=== PATIENT | female | born 1970 | race African-American/Black ===

== ENCOUNTER 2017-12-31 21:28 | Observation (INO) | payer OTHER ==
[2017-12-31] MEDS ORDERED: ASPIRIN 81 MG CHEWABLE TABLET ONE (22:00)
[2017-12-31] MEDS ORDERED: NITROGLYCERIN 0.4 MG/TAB SL ONE (22:00)
[2017-12-31 22:02] LABS: Absolute Lymphocytes (CBC) 2.1 K/uL (0.7-4.9); Absolute Monocytes 0.6 K/uL (0.1-1.3); Absolute Neutrophil 3.5 K/uL (1.8-8.0); Basophils % 0.5 % (0-1.3); Eosinophils % 1.7 % (0-4.4); Hematocrit 38.9 % (36.0-45.0); Lymphocytes % 33.4 % (15.3-44.8); MCH 30.2 pg (27.0-35.0); MCV 88.4 fL (80-100); MPV 7.8 fL (7.6-11.3); Monocytes % 9.4 % (3.3-12.3)
[2017-12-31 22:09] LABS: Protime INR 0.98
[2017-12-31 22:22] LABS: ALT/SGPT 24 U/L (12-78); AST/SGOT 18 U/L (15-37); Albumin 3.9 g/dL (3.4-5.0); Alkaline Phosphatase 82 U/L (45-117); BUN Blood Urea Nitrogen 12 mg/dL (7-18); Bicarbonate 33 mmol/L (21-32); Bilirubin Direct < 0.1 mg/dL (0-0.2); Bilirubin Total 0.3 mg/dL (0.2-1.0); Glucose Level 85 mg/dL (74-106); Magnesium 1.9 mg/dL (1.8-2.4); NT PRO-BNP 59 pg/mL (<125); Potassium 3.8 mmol/L (3.5-5.1); Sodium Level 138 mmol/L (136-145)
--- NOTE | 2017-12-31 22:49 | RAD REPORT ---
EXAM DESCRIPTION: RAD - Chest Single View - 12/31/2017 10:32 pm CLINICAL HISTORY: CHEST PAIN Chest pain. COMPARISON: Chest Single View dated 05/20/2017; CHEST SINGLE VIEW dated 01/25/2008 FINDINGS: Portable technique limits examination quality. The lungs are grossly clear. The heart is upper limit of normal in size. No displaced fractures. IMPRESSION: No acute intrathoracic process suspected.
--- NOTE | 2017-12-31 23:55 | ER ---
Nurse's Notes [facility] Name: Etta Boyd Age: 47 yrs Sex: Female : 1970 Arrival Date: 12/31/2017 Time: 21:29 Bed 27 Private MD: Yamel Henson K Diagnosis: Chest pain, unspecified;Paresthesia of skin Presentation: 12/31 21:32 Method Of Arrival: Ambulatory fc 21:32 Acuity: FALGUNI 3 21:32 Presenting complaint: Patient states: that she has been having chest pain on and off x fc 2 days. Then tonight at 1830 she started to have tingling and numbness to left arm/hand and face. Transition of care: patient was not received from another setting of care. Onset of symptoms was December 29, 2017. Risk Assessment: Do you want to hurt yourself or someone else? Patient reports no desire to harm self or others. Initial Sepsis Screen: Does the patient meet any 2 criteria? RR > 20 per min. Yes Does the patient have a suspected source of infection? No. Patient's initial sepsis screen is negative. Care prior to arrival: None. Historical: - Allergies: 21:54 No Known Allergies; fc - Home Meds: 21:54 amlodipine 5 mg tab 1 tab once daily [Active]; tramadol 50 mg Oral tab 1 tab as needed fc [Active]; metoprolol tartrate 100 mg oral tab 1 tab once daily [Active]; lisinopril 40 mg oral tab 1 tab once daily [Active]; atorvastatin 20 mg Oral tab 1 tab once daily [Active]; aspirin 81 mg Oral chew 1 tab once daily [Active]; Hydrochlorothiazide Oral once daily [Active]; - PMHx: 21:54 Hyperlipidemia; Hypertension; fc - PSHx: 21:54 Hysterectomy; Tubal ligation; fc - Immunization history:: Last tetanus immunization: up to date. - Social history:: Smoking status: Patient/guardian denies using tobacco. - Ebola Screening: : Patient negative for fever greater than or equal to 101.5 degrees Fahrenheit, and additional compatible Ebola Virus Disease symptoms Patient denies exposure to infectious person Patient denies travel to an Ebola-affected area in the 21 days before illness onset. Screenin:32 Abuse screen: Denies threats or abuse. Nutritional screening: No deficits noted. fc Tuberculosis screening: No symptoms or risk factors identified. Fall Risk None identified. 22:15 Abuse screen: Denies threats or abuse. Denies injuries from another. Nutritional mg2 screening: No deficits noted. Fall Risk None identified. Assessment: 22:00 General: Appears uncomfortable, Behavior is calm, cooperative. Pain: Complains of pain mg2 in left chest Pain radiates to left arm Pain currently is 7 out of 10 on a pain scale. Quality of pain is described as aching, Pain began yesterday Is intermittent, Alleviated by rest, Noted to be grimacing. Neuro: Level of Consciousness is awake, alert, obeys commands, Oriented to person, place, time. Cardiovascular: Capillary refill < 3 seconds Patient's skin is warm and dry. Rhythm is sinus rhythm. Respiratory: Airway is patent Respiratory effort is even, unlabored, Respiratory pattern is regular, symmetrical. GI: No signs and/or symptoms were reported involving the gastrointestinal system. : No signs and/or symptoms were reported regarding the genitourinary system. EENT: No signs and/or symptoms were reported regarding the EENT system. Derm: Skin is intact, Skin is pink, warm \T\ dry. normal. Musculoskeletal: No signs and/or symptoms reported regarding the musculoskeletal system. 22:54 Reassessment: patient is back from CT scan. mg2 01/01 00:45 Reassessment: Patient appears in no apparent distress at this time. Patient and/or mg2 family updated on plan of care and expected duration. Pain level reassessed. Patient is alert, oriented x 3, equal unlabored respirations, skin warm/dry/pink. receiving nurse will call back to take the report. Vital Signs: 12/31 21:32 BP 156 / 98; Pulse 85; Resp 28; Temp 98.4(O); Pulse Ox 99% on R/A; Weight 127.91 kg fc (R); Height 5 ft. 4 in. (162.56 cm) (R); Pain 7/10; 23:30 BP 127 / 68; Pulse 89; Resp 18; Temp 98.4; Pulse Ox 100% on R/A; Pain 5/10; mg2 01/01 00:50 BP 146 / 89; Pulse 89; Resp 18; Pulse Ox 100% on R/A; Pain 10; mg2 12/31 21:32 Body Mass Index 48.40 (127.91 kg, 162.56 cm) fc NIH Stroke Scale Scores: 12/31 22:00 NIHSS Score: 0 jr8 ED Course: 21:29 Patient arrived in ED. al2 21:30 Yamel Henson MD is Private Physician. al2 21:32 No provider procedures requiring assistance completed. Patient maintains SpO2 fc saturation greater than 95% on room air. 21:32 Arm band placed on Patient placed in an exam room, on a stretcher. fc 21:32 Patient has correct armband on for positive identification. dye colorist dyer on. Pulse fc ox on. NIBP on. 21:38 EKG done, by ED staff, reviewed by Cruz DAVIS. fc 21:43 Inserted saline lock: 20 gauge in right antecubital area, using aseptic technique. ak1 Blood collected. 21:47 Cruz Sinclair PA is PHCP. jr8 21:47 Billy Tamayo MD is Attending Physician. jr8 21:48 Triage completed. fc 21:52 Johnson Grider RN is Primary Nurse. mg2 22:29 X-ray completed. Portable x-ray completed in exam room. Patient tolerated procedure mh1 well. 22:30 XRAY Chest (1 view) In Process Unspecified. EDMS 22:54 CT Head Brain wo Cont In Process Unspecified. EDMS 23:55 Leslee Harris MD is Hospitalizing Provider. jr8 01/01 00:51 Patient admitted, IV remains in place. mg2 Administered Medications: 12/31 21:58 Drug: Nitroglycerin 0.4 mg Route: Sublingual; mg2 23:38 Follow up: Response: No adverse reaction mg2 21:59 Drug: Aspirin Chewable Tablet 324 mg Route: PO; mg2 23:38 Follow up: Response: No adverse reaction mg2 01/01 00:05 Drug: fentaNYL (PF) 50 mcg Route: IVP; Site: right antecubital; mg2 00:52 Follow up: Response: No adverse reaction; Pain is decreased mg2 Point of Care Testing: Blood Glucose: 12/31 21:37 Blood Glucose: 63 mg/dL; fc Ranges: Outcome: 23:55 Decision to Hospitalize by Provider. jr8 01/01 00:50 Admitted to Tele accompanied by tech, via wheelchair, room 426, with chart, Report mg2 called to RN [place] Condition: stable Instructed on the need for admit, Demonstrated understanding of instructions. 01:07 Patient left the ED. mg2 NIH Stroke Scale - NIH Stroke Score Date: 12/31/2017 Time: 22:00 Total Score = 0 1a. Level of Consciousness (LOC) - 0(Alert) 1b. Level of Consciousness (LOC) (Year \T\ Age) - 0(Both) 1c. LOC Commands (Open \T\ Closes Eyes/Insurance Inspector) - 0(Both) 2. Best Gaze (Lateral Gaze Paresis) - 0(Normal) 3. Visual Field Loss - 0(No visual loss) 4. Facial Palsy - 0(Normal) 5a. Left Arm: Motor (10-second hold) - 0(No drift) 5b. Right Arm: Motor (10-second hold) - 0(No drift) 6a. Left Leg: Motor (5-second hold - always test supine) - 0(No drift) 6b. Right Leg: Motor (5-second hold - always test supine) - 0(No drift) 7. Limb Ataxia (finger/nose \T\ heel/dillard - test with eyes open) - 0(Absent) 8. Sensory Loss (pinprick arms/legs/face) - 0(Normal) 9. Best Language: Aphasia (description/naming/reading) - 0(No aphasia) 10. Dysarthria (speech clarity - read or repeat words) - 0(Normal) 11. Extinction and Inattention (visual/tactile/auditory/spatial/personal) - 0(No abnormality) Initials: jr8 Signatures: Dispatcher [employer] EDMS Emy Márquez 1 Katlyn Contreras RN RN Cruz Deshpande PA PA jr8 Domenica Webb RN RN ak1 Yomaira Capone Michele, RN RN mg2
--- NOTE | 2017-12-31 23:56 | EDPHYS ---
Physician Documentation [facility] Name: Etta Boyd Age: 47 yrs Sex: Female : 1970 Arrival Date: 12/31/2017 Time: 21:29 Bed 27 Private MD: Yamel Henson K ED Physician Billy Tamayo HPI: 12/31 22:01 This 47 yrs old Black Female presents to ER via Ambulatory with complaints of Chest jr8 Pain, LEFT SIDE PAIN. 22:01 The patient or guardian reports chest pain that is located primarily in the substernal jr8 area. Onset: acutely, 2 day(s) ago. The pain radiates to the left arm, left jaw. Associated signs and symptoms: The patient has no apparent associated signs or symptoms. The chest pain is described as a heaviness, a pressure, squeezing. Duration: The patient or guardian reports multiple episodes, that are intermittent, that wax and wane. Severity of pain: At its worst the pain was mild in the emergency department the pain has improved. The patient has not experienced similar symptoms in the past. The patient has not recently seen a physician. Patient stated that she has had chest pain on/off for past couple of days. Stated that she came in tonight because after having episode of pain around 6 pm started to have numbness to left face and left arm . Historical: - Allergies: 21:54 No Known Allergies; fc - Home Meds: 21:54 amlodipine 5 mg tab 1 tab once daily [Active]; tramadol 50 mg Oral tab 1 tab as needed fc [Active]; metoprolol tartrate 100 mg oral tab 1 tab once daily [Active]; lisinopril 40 mg oral tab 1 tab once daily [Active]; atorvastatin 20 mg Oral tab 1 tab once daily [Active]; aspirin 81 mg Oral chew 1 tab once daily [Active]; Hydrochlorothiazide Oral once daily [Active]; - PMHx: 21:54 Hyperlipidemia; Hypertension; fc - PSHx: 21:54 Hysterectomy; Tubal ligation; fc - Immunization history:: Last tetanus immunization: up to date. - Social history:: Smoking status: Patient/guardian denies using tobacco. - Ebola Screening: : Patient negative for fever greater than or equal to 101.5 degrees Fahrenheit, and additional compatible Ebola Virus Disease symptoms Patient denies exposure to infectious person Patient denies travel to an Ebola-affected area in the 21 days before illness onset. ROS: 22:01 Eyes: Negative for injury, pain, redness, and discharge, ENT: Negative for injury, jr8 pain, and discharge, Neck: Negative for injury, pain, and swelling, Respiratory: Negative for shortness of breath, cough, wheezing, and pleuritic chest pain, Abdomen/GI: Negative for abdominal pain, nausea, vomiting, diarrhea, and constipation, Back: Negative for injury and pain, MS/Extremity: Negative for injury and deformity, Skin: Negative for injury, rash, and discoloration. 22:01 Cardiovascular: Positive for chest pain, Negative for edema, orthopnea, palpitations, paroxysmal nocturnal dyspnea. 22:01 Neuro: Positive for tingling, of the face and left arm. Exam: 22:00 Eyes: Pupils equal round and reactive to light, extra-ocular motions intact. Lids and jr8 lashes normal. Conjunctiva and sclera are non-icteric and not injected. Cornea within normal limits. Periorbital areas with no swelling, redness, or edema. ENT: Nares patent. No nasal discharge, no septal abnormalities noted. Tympanic membranes are normal and external auditory canals are clear. Oropharynx with no redness, swelling, or masses, exudates, or evidence of obstruction, uvula midline. Mucous membranes moist. Neck: Trachea midline, no thyromegaly or masses palpated, and no cervical lymphadenopathy. Supple, full range of motion without nuchal rigidity, or vertebral point tenderness. No Meningismus. Chest/axilla: Normal chest wall appearance and motion. Nontender with no deformity. No lesions are appreciated. Cardiovascular: Regular rate and rhythm with a normal S1 and S2. No gallops, murmurs, or rubs. Normal PMI, no JVD. No pulse deficits. Respiratory: Lungs have equal breath sounds bilaterally, clear to auscultation and percussion. No rales, rhonchi or wheezes noted. No increased work of breathing, no retractions or nasal flaring. Abdomen/GI: Soft, non-tender, with normal bowel sounds. No distension or tympany. No guarding or rebound. No evidence of tenderness throughout. Back: No spinal tenderness. No costovertebral tenderness. Full range of motion. Skin: Warm, dry with normal turgor. Normal color with no rashes, no lesions, and no evidence of cellulitis. MS/ Extremity: Pulses equal, no cyanosis. Neurovascular intact. Full, normal range of motion. Neuro: Awake and alert, GCS 15, oriented to person, place, time, and situation. Cranial nerves II-XII grossly intact. Motor strength 5/5 in all extremities. Sensory grossly intact. Cerebellar exam normal. Normal gait. Vital Signs: 21:32 BP 156 / 98; Pulse 85; Resp 28; Temp 98.4(O); Pulse Ox 99% on R/A; Weight 127.91 kg fc (R); Height 5 ft. 4 in. (162.56 cm) (R); Pain 7/10; 23:30 BP 127 / 68; Pulse 89; Resp 18; Temp 98.4; Pulse Ox 100% on R/A; Pain 5/10; mg2 01/01 00:50 BP 146 / 89; Pulse 89; Resp 18; Pulse Ox 100% on R/A; Pain 5/10; mg2 12/31 21:32 Body Mass Index 48.40 (127.91 kg, 162.56 cm) NIH Stroke Scale Scores: 12/31 22:00 NIHSS Score: 0 jr8 MDM: 21:47 Patient medically screened. jr8 23:54 The patient was given aspirin in the Emergency Department. Data reviewed: vital signs, [facility] nurses notes, lab test result(s), EKG, radiologic studies, CT scan, plain films. Data interpreted: Pulse oximetry: on room air is 99 %. Interpretation: normal. Counseling: I had a detailed discussion with the patient and/or guardian regarding: the historical points, exam findings, and any diagnostic results supporting the discharge/admit diagnosis, lab results, radiology results, the need for further work-up and treatment in the hospital. ED course: Patient still having tingling and chest pain. Will admit for obs . 12/31 21:48 Order name: Basic Metabolic Panel 12/31 21:48 Order name: CBC with Diff 12/31 21:48 Order name: LFT's 12/31 21:48 Order name: Magnesium 12/31 21:48 Order name: NT PRO-BNP 12/31 21:48 Order name: PT-INR 12/31 21:48 Order name: Troponin (emerg Dept Use Only); Complete Time: 22:37 8 12/31 21:49 Order name: Basic Metabolic Panel; Complete Time: 22:37 EDMS 12/31 21:49 Order name: CBC with Automated Diff; Complete Time: 22:15 EDMS 12/31 21:49 Order name: Liver (Hepatic) Function; Complete Time: 22:37 EDMS 12/31 21:49 Order name: Magnesium; Complete Time: 22:37 EDMS 12/31 21:49 Order name: NT PRO-BNP; Complete Time: 22:37 EDMS 12/31 21:49 Order name: Protime (+INR); Complete Time: 22:37 EDMS 12/31 23:09 Order name: Urine Dipstick--Ancillary (enter results); Complete Time: 00:10 ms 12/31 21:48 Order name: Urine Test (obtain specimen); Complete Time: 22:12 12/31 21:48 Order name: XRAY Chest (1 view); Complete Time: 22:51 12/31 21:48 Order name: EKG; Complete Time: 21:49 12/31 21:48 Order name: Cardiac monitoring; Complete Time: :59 8 12/31 21:48 Order name: EKG - Nurse/Tech; Complete Time: :59 12/31 21:48 Order name: IV Saline Lock; Complete Time: :59 12/31 21:48 Order name: Labs collected and sent; Complete Time: :59 12/31 21:48 Order name: O2 Per Protocol; Complete Time: :59 12/31 21:48 Order name: O2 Sat Monitoring; Complete Time: :59 12/31 21:48 Order name: Urine Dipstick-Ancillary (obtain specimen); Complete Time: 22:12 8 12/31 22:37 Order name: CT Head Brain wo Cont 12/31 23:09 Order name: Urine --Ancillary (enter results); Complete Time: 00:10 ms Administered Medications: 21:58 Drug: Nitroglycerin 0.4 mg Route: Sublingual; mg2 23:38 Follow up: Response: No adverse reaction mg2 21:59 Drug: Aspirin Chewable Tablet 324 mg Route: PO; mg2 23:38 Follow up: Response: No adverse reaction mg2 01/01 00:05 Drug: fentaNYL (PF) 50 mcg Route: IVP; Site: right antecubital; mg2 00:52 Follow up: Response: No adverse reaction; Pain is decreased mg2 Point of Care Testing: Blood Glucose: 12/31 21:37 Blood Glucose: 63 mg/dL; fc Ranges: Critical Glucose Levels:Adult <50 mg/dl or >400 mg/dl <40 mg/dl or >180 mg/dl Disposition: 01/01 21:19 Co-signature as Attending Physician, Billy Tamayo MD Available for consultation at ps1 all times. Disposition: 12/31/17 23:55 Hospitalization ordered by Leslee Harris for Observation. Preliminary diagnosis are Chest pain, unspecified, Paresthesia of skin. - Bed requested for Telemetry/MedSurg (observation). - Status is Observation. mg2 - Condition is Stable. - Problem is new. - Symptoms are unchanged. UTI on Admission? No NIH Stroke Scale - NIH Stroke Score Date: 12/31/2017 Time: 22:00 Total Score = 0 1a. Level of Consciousness (LOC) - 0(Alert) 1b. Level of Consciousness (LOC) (Year \T\ Age) - 0(Both) 1c. LOC Commands (Open \T\ Closes Eyes/Mathematical Scientist) - 0(Both) 2. Best Gaze (Lateral Gaze Paresis) - 0(Normal) 3. Visual Field Loss - 0(No visual loss) 4. Facial Palsy - 0(Normal) 5a. Left Arm: Motor (10-second hold) - 0(No drift) 5b. Right Arm: Motor (10-second hold) - 0(No drift) 6a. Left Leg: Motor (5-second hold - always test supine) - 0(No drift) 6b. Right Leg: Motor (5-second hold - always test supine) - 0(No drift) 7. Limb Ataxia (finger/nose \T\ heel/dillard - test with eyes open) - 0(Absent) 8. Sensory Loss (pinprick arms/legs/face) - 0(Normal) 9. Best Language: Aphasia (description/naming/reading) - 0(No aphasia) 10. Dysarthria (speech clarity - read or repeat words) - 0(Normal) 11. Extinction and Inattention (visual/tactile/auditory/spatial/personal) - 0(No abnormality) Initials: jr8 Signatures: Dispatcher [employer] EDMS Emy Benson RN RN Katlyn Contreras RN RN Cruz Deshpande PA PA jr8 Billy Tamayo MD MD [facility] Johnson Grider RN RN mg2 Corrections: (The following items were deleted from the chart) 00:13 12/31 23:55 Hospitalization Ordered by Leslee Harris MD for Observation. Preliminary diagnosis is Chest pain, unspecified; Paresthesia of skin. Bed requested for Telemetry/MedSurg (observation). Status is Observation. Condition is Stable. Problem is new. Symptoms are unchanged. UTI on Admission? No. jr8 01/01 01:07 00:12/31/2017 23:55 Hospitalization Ordered by Leslee Harris MD for mg2 Observation. Preliminary diagnosis is Chest pain, unspecified; Paresthesia of skin. Bed requested for Telemetry/MedSurg (observation). Status is Observation. Condition is Stable. Problem is new. Symptoms are unchanged. UTI on Admission? No. mw
[2018-01-01 00:01] LABS: Urine Blood NEGATIVE (NEG); Urine Glucose NEGATIVE (NEG); Urine Protein NEGATIVE (NEG); Urine Specific Gravity 1.015 (1.005-1.030); Urine pH 6.5 (5.0-7.0)
[2018-01-01] MEDS ORDERED: FENTANYL CITR 100 MCG/2 ML ONE (00:04)
[2018-01-01] MEDS ORDERED: ONDANSETRON 4 MG/2 ML VIAL IV PRN (01:22)
[2018-01-01] MEDS: TRAMADOL HCL 50 MG TAB PO PRN ×2 (02:28→08:58)
--- NOTE | 2018-01-01 05:22 | P.HP ---
Certification for Inpatient Patient admitted to: Observation With expected LOS: <2 Midnights Practitioner: I am a practitioner with admitting privileges, knowledge of patient current condition, hospital course, and medical plan of care. Services: Services provided to patient in accordance with Admission requirements found in Title 42 Section 412.3 of the Code of Federal Regulations Patient History Date of Service: 01/01/18 Reason for admission: left side parestesia History of Present Illness: Ms Boyd is a 47 years old woman with history of HTN, Dyslipidemia, who start yesterday with left side of the face, arm and leg numbness. She denied weakness. Also has had left side headache. The patient has had this symptoms in the past, she was evaluated by neurologist, and the etiology was not clear. She was also complaining of chest pain, since yesterday. Her pain was on and off, lasting for 1 minute, radiated to the jaw, 7/10 of intensity, described as stubbing pain without radiation. She denied fever or chills. Lab work shows normal trop I, EKG without ST-T abnormalities. Allergies ceftriaxone [From Rocephin] Allergy (Verified 05/20/17 21:34) Itching/Hives/Rash No Known Allergies Allergy (Uncoded 05/20/17 21:37) Unknown Home medications list reviewed: Yes Home Medications: Aspirin 1 tab PO DAILY 05/20/17 Atorvastatin Calcium [Lipitor*] 1 tab PO DAILY 05/20/17 Lisinopril 40 tab PO DAILY 05/20/17 Metoprolol Tartrate 100 mg PO DAILY 05/20/17 traMADol HCL [Ultram] 50 mg PO TID PRN #30 tab 05/22/17 Amlodipine [Norvasc] 5 mg PO DAILY 01/01/18 Liraglutide [Saxenda] 1 dose SQ DAILY 01/01/18 Spironolactone 25 mg PO PRN PRN 01/01/18 hydroCHLOROthiazide [Hydrodiuril] 25 mg PO DAILY 01/01/18 - Past Medical/Surgical History Has patient received pneumonia vaccine in the past: No Diabetic: No -: hyperlipidemia -: htn -: tubal ligation -: -: partial hysterectomy - Family History Family History: Reviewed- Non-Contributory - Social History Smoking Status: Never smoker Alcohol use: No CD- Drugs: No Caffeine use: Yes Place of Residence: Home Review of Systems 10-point ROS is otherwise unremarkable Physical Examination - Vital Signs Temperature: 96.6 F Blood Pressure: 139/78 Pulse: 74 Respirations: 16 - Physical Exam General: Alert, In no apparent distress HEENT: Atraumatic, PERRLA, Mucous membr. moist/pink, EOMI, Sclerae nonicteric Neck: Supple, 2+ carotid pulse no bruit, No LAD, Without JVD or thyroid abnormality Respiratory: Clear to auscultation bilaterally, Normal air movement Cardiovascular: Regular rate/rhythm, Normal S1 S2 Gastrointestinal: Normal bowel sounds, No tenderness Musculoskeletal: No tenderness Integumentary: No rashes Neurological: Normal speech, Normal strength at 5/5 x4 extr, Normal tone, Normal affect, Other (numbness in left side of the face, arm and leg.) Lymphatics: No axilla or inguinal lymphadenopathy - Studies Laboratory Data (last 24 hrs) 12/31/17 21:40: PT 11.6, INR 0.98 12/31/17 21:40: WBC 6.3, Hgb 13.3, Hct 38.9, Plt Count 295 12/31/17 21:40: Sodium 138, Potassium 3.8, BUN 12, Creatinine 0.90, Glucose 85, Magnesium 1.9, Total Bilirubin 0.3, AST 18, ALT 24, Alkaline Phosphatase 82 Assessment and Plan - Problems (Diagnosis) (1) Paresthesias Current Visit: Yes Status: Acute (2) HTN (hypertension) Current Visit: Yes Status: Acute Qualifiers: Hypertension type: essential hypertension Qualified Code(s): I10 - Essential (primary) hypertension (3) Chest pain Current Visit: Yes Status: Acute Qualifiers: Chest pain type: chest pain on breathing Qualified Code(s): R07.1 - Chest pain on breathing; R07.81 - Pleurodynia - Plan Ms Boyd will be admitted to the hospital due to left side paresthesias. CT head shows no acute abnormalities. Will order a C-spine MRI and brain MRI. Consult Dr Avelar. Also admitted due to chest pain. Initial trop I negative, EKG without ST-T abnormalities. Will order serial cardiac enzymes, ECHO, cardiology consult. - Advance Directives Does patient have a Living Will: No Does patient have a Durable POA for Healthcare: No - Code Status/Comfort Care Code Status Assessed: Yes Code Status: Full Code
--- NOTE | 2018-01-01 06:31 | EKG ---
Test Date: 2017-12-31 Test Time: 21:40:27 Director Of Orthopedics: JENNIFER MEASUREMENT RESULTS: Intervals: Rate: 88 NV: 160 QRSD: 68 QT: 370 QTc: 447 [place]: P: 50 NV: 160 QRS: 5 T: 22 INTERPRETIVE STATEMENTS: Normal sinus rhythm Normal ECG Compared to ECG 05/20/2017 16:47:24 No significant changes Electronically Signed On 01-01-18 06:30:24 CDT by Leonel Vincent
[2018-01-01] MEDS: INSULIN -REGULAR HUMAN 50 UNIT/0.5 ML ML SQ SCH ×4 (07:30→20:44)
--- NOTE | 2018-01-01 08:16 | RAD REPORT ---
EXAM DESCRIPTION: CT - Head Brain Wo Cont - 01/01/2018 4:38 am CLINICAL HISTORY: NUMBNESS Hypertension, CVA symptomology. COMPARISON: Brain W/Wo Cont dated 05/21/2017 TECHNIQUE: All CT scans are performed using dose optimization technique as appropriate and may inclu de automated exposure control or mA/KV adjustment according to patient size. FINDINGS: No intracranial hemorrhage, hydrocephalus or extra-axial fluid collection.No areas of brai n edema or evidence of midline shift. The paranasal sinuses and mastoids are clear. The calvarium is intact. IMPRESSION: No acute intracranial abnormality.
[2018-01-01] MEDS ORDERED: POTASSIUM CL SA 10 MEQ TAB PO ONE (09:00)
[2018-01-01] MEDS: ASPIRIN EC 81 MG TAB PO SCH (09:00)
--- NOTE | 2018-01-01 09:19 | RAD REPORT ---
EXAM DESCRIPTION: MRI - C Spine Wo Cont- 01/01/2018 7:47 am CLINICAL HISTORY: paresthesias Radiculopathy COMPARISON: MRICERVICAL SPINE W O CONTR dated 01/02/2010 FINDINGS: Cervical vertebral bodies are normal in height and alignment. No suspicious marrow edema or marrow replacing process. No fracture or traumatic subluxation. The craniocervical junction is normal. C2-3 level: Small posterior disc bulge attenuating the ventral subarachnoid space. C3-4 level: Small central disc herniation is present measuring 3 mm, attenuating the ventral subarach noid space and contacting the anterior cord. C4-5 level: Moderate to large central disc herniation is present measuring 5 mm in anterior- posterio r dimension, attenuating the ventral subarachnoid space and contacting and deforming the anterior asp ect of the cord. Left-sided uncovertebral facet spurring mildly narrows the left exit foramen. C5-6 level: Moderate posterior osteophyte/ disc complex is present with 3 mm central disc herniation also noted. Findings attenuate the ventral subarachnoid space and contact and mildly deform the cord. Right-sided facet and uncovertebral spurring mildly narrows the right exit foramen. C6-7 level: Mild posterior osteophyte/ disc complex is present with mild left-sided uncovertebral fac et spurring mildly which mildly narrows the left exit foramen. C7-T1 level: No significant findings. Cervical cord is normal in size and signal. IMPRESSION: Moderate mid cervical degenerative change with multilevel disc herniations present as de tailed. Findings appear most severe at C4-5.
[2018-01-01] MEDS ORDERED: REGADENOSON 0.4 MG/5 ML SYR IV ONE (10:03)
--- NOTE | 2018-01-01 12:13 | ECHO ---
HEIGHT: 5 ft 4 in WEIGHT: 288 lb 12.8 oz DATE OF STUDY: 01/01/[address]: Leslee Erickson MD 2-DIMENSIONAL: YES M.MODE: YES DOPPLER: YES COLOR FLOW: YES TDS: NO PORTABLE: NO DEFINITY: NO BUBBLE STUDY: NO DIAGNOSIS: CHEST PAIN CARDIAC HISTORY: CATHERIZATION: NO SURGERY: NO PROSTHETIC VALVE: NO PACEMAKER: NO MEASUREMENTS (cm) DIASTOLIC (NORMALS) SYSTOLIC (NORMALS) IVSd 1.1 (0.6-1.2) LA Diam 3.5 (1.9-4.0) LVEF 74% LVIDd 4.3 (3.5-5.7) LVIDs 2.4 (2.0-3.5) %FS 43% LVPWd 1.2 (0.6-1.2) Ao Diam 2.7 (2.0-3.7) 2 DIMENSIONAL ASSESSMENT: RIGHT ATRIUM: NORMAL LEFT ATRIUM: NORMAL RIGHT VENTRICLE: NORMAL LEFT VENTRICLE: NORMAL TRICUSPID VALVE: NORMAL MITRAL VALVE: NORMAL PULMONIC VALVE: NORMAL AORTIC VALVE: NORMAL PERICARDIAL EFFUSION: NONE AORTIC ROOT: NORMAL LEFT VENTRICULAR WALL MOTION: NORMAL DOPPLER/COLOR FLOW: TRACE MITRAL AND TRICUSPID REGURGITATION. NORMAL RIGHT VENTRICULAR SYSTOLIC PRESSURE. COMMENTS: NORMAL 2D ECHOCARDIOGRAM. TRACE MITRAL AND TRICUSPID REGURGITATION. TECHNOLOGIST: Shelton DERAS
--- NOTE | 2018-01-01 12:33 | CON ---
Identification: A 47-year-old woman. Attending Physician: Dr. Erickson, although it has been handed over to Dr. Russell. Chief Complaint: Pain in the left side of her body including chest pain. History Of Present Illness: Ms. Boyd has been having chest pain off and on for 3 days. The pain w ill occur in the left side of her upper chest. It does not radiate. No nausea, vomiting, dyspnea, s weating. It lasts for 30 seconds, goes away and that will return 30 minutes later. It does not seem to have any relation to the emotional distress, kneels, activity, body position, taking a deep breat h. She has had probably been more than 50 of these spells in the last 3 days. She has pain in the e ntire left side of her body and face, arm, legs, hands, back. Its a tingling in the skin and the con cern is that she may have had a stroke, perhaps capsule a lacunar stroke. The patient has longstandi ng hypertension, dyslipidemia. Home Medications: Lisinopril, atorvastatin, aspirin, metoprolol, tramadol, hydrochlorothiazide, spir onolactone, amlodipine, and Liraglutide. She denies a history of diabetes, but she takes Liraglutide . Allergies: SHE REPORTS DRUG ALLERGY TO CEFTRIAXONE. Social History: She uses no tobacco, no alcohol, no illegal drugs. Since being in the hospital, a CT of the brain is normal. An MRI of the cervical spine has been done that we do not know the results yet. Cardiac enzymes are all normal. Her total cholesterol is 180, LDL cholesterol 107. Blood sugar 85. The chest x-ray is within normal limits. We do not have a ca rotid Doppler or brain MRI. Physical Examination: Vital Signs: 5 feet 4 inches, 288 pounds, body mass index 49. HEENT: Normal. Lungs: Clear. Heart: within normal limits. Abdomen: Soft. Extremities: Normal. No edema. Pulses are normal. An electrocardiogram has been done. It shows sinus rhythm and everything about the EKG is normal. T here is an EKG from today. Impression: This is probably not an acute coronary syndrome. I think it is going to be gonzales for us to do a pharmacologic nuclear stress test and echo and see what we learn. I am not sure we know the cause of her pain or whether she has had a stroke. I think Dr. Avelar may have to sedate the patient for her to have an appropriate MR study. She reports being quite claustrophobic. Thank you very much for your kind referral of Ms. Boyd. I will follow her with you. KERRY Voice ID: [id number] Report ID: [id number]
[2018-01-01] MEDS ORDERED: SPIRONOLACTONE 25 MG TABLET PO PRN (12:38)
[2018-01-01] MEDS ORDERED: LORAZEPAM 0.5 MG TABLET PO ONE (14:46)
[2018-01-01] MEDS: ENOXAPARIN 40 MG/0.4 ML SQ SCH (14:47)
--- NOTE | 2018-01-01 14:54 | RAD REPORT ---
EXAM DESCRIPTION: NM - Rest Stress Cardiac Imaging - 01/01/2018 1:56 pm CLINICAL HISTORY: Chest pain. COMPARISON: None. TECHNIQUE: The patient was administered approximately 10mCi of Tc 99m Sestamibi prior to resting SPE CT imaging of the heart. The patient was then administered approximately 30 mCi of Tc 99m Sestamibi f ollowing exercise or pharmacologic stress. Multiplanar SPECT images were reviewed. FINDINGS: Small area of diminished radiotracer uptake involves the inferior left ventricular myocard ium on rest and stress images. Most likely this is secondary to attenuation from the diaphragm. The remainder of the left ventricular myocardium demonstrates normal radiotracer activity. The left ventricular ejection fraction equals 63% IMPRESSION: No evidence of a myocardial perfusion defect
--- NOTE | 2018-01-01 17:07 | TREADPHA ---
DX: CHEST PAIN Date of Study: 01/01/2018 Ht: 5 4 Wt: 288 lb 12.8 oz Consulting Physician: TEJLA MEDICATIONS: ASPIRIN, LOVENOX, NOLOVIN-R, ZOFRAN, KLOR-CON, ULTRAM HISTORY: 47 Y/O FEMALE HER FOR CHEST PAIN. HISTORY OF HYPERLIPIDEMIA AND HYPERTENSION. PHYSICIAL EXAMINATION: RESTING B.P.: 124/68 RESTING H.R.: 80 RESTING EKG: NORMAL PROTOCOL: NON-DIAGNOSTIC EKG WITH LEXISCAN STRESS EXERCISE TIME: 3:30 B.P. AT [facility]AK STRESS: 110/60 IMPRESSION: LEXISCAN STRESS TESR PREFORMED. CARDIOLITE INJECTED PER PROTOCOL. NO ARRHYTHMIA NOTED. COMPLAINTS OF CHEST TIGHTNESS TO MID STERNAL AREA THAT SQUEEZES AND THEN RELEASES THROUGHOUT TEST. SEE NUCLEAR MEDICINE REPORT. NON- DIAGNOSTIC ELECTROCARDIOGRAM WITH LEXISCAN STRESS.
[2018-01-01] MEDS: HYDROCODONE/APAP 7.5/325 MG TAB PO PRN ×2 (17:20→23:25)
--- NOTE | 2018-01-01 19:30 | PN ---
Date of Progress Note: 01/01/2018 Subjective: The patient seen and examined, chart reviewed, and case discussed with RN. The patient went for stress test today. Still complains of some headache and some pain on her left side and some numbness. Review of Systems: Negative except as above. Medications: List reviewed. Objective: Vital Signs: Temperature 97.4, heart rate 68, blood pressure 169/85, respirations 18, O2 96% on room air. General: Awake, alert, oriented x3, in some mild distress. Ill-appearing female, morbidly obese. B CT 49. CV: S1, S2. No murmurs. Regular rate and rhythm. Peripheral pulses present. Respiratory: Clear to auscultation bilaterally. No wheezing. No stridor. No use of accessory musc les Gastrointestinal: Abdomen is soft, nontender, nondistended. Positive bowel sounds. Extremities: No clubbing, cyanosis, or edema. Neurologic: Nonfocal. The patient does have some decreased sensation to light touch on the left gertrudis e. Laboratory Data: Triglycerides 139, cholesterol 180, LDL 107, and HDL 45. Troponin less than 0.02. Glucose 81. Echocardiogram shows EF of 74%. Normal 2D echo. Head CT scan shows no acute intracran ial abnormality. Cervical spine MRI shows moderate mid cervical degenerative changes with multilevel disk herniations present as detailed. Findings appear most severe at C4-C5 level. Nuclear stress t est shows no evidence of a myocardial perfusion defect. Assessment: A 47-year-old female with; 1.Paresthesias, likely related to disk herniations within the cervical spine. MRIs personally revie wed. We will obtain MRI of the brain to rule out cerebrovascular accident. 2.Essential hypertension. Resume home medications as appropriate. 3.Chest pain, atypical. The patient had a stress test, do not show any stress-induced ischemia. Ej ection fraction is normal. Appreciate Dr. Vincent' input. Echocardiogram shows normal EF. 4.Morbid obesity, body mass index 49.. 5.Dyslipidemia, on Lipitor. 6.Gastrointestinal and deep venous thrombosis prophylaxis addressed. Plan: Follow up with Neurology recommendations. Obtain MRI brain. SA/MODL Voice ID: [id number] Report ID: [id number]
[2018-01-01] MEDS ORDERED: LORazepam 2 MG/ML VIAL IV ONE (21:27)
--- NOTE | 2018-01-02 01:19 | CON ---
Reason: Paresthesias/possible stroke. History: This is a 47-year-old lady with a history of hypertension. She was in her usual state of h ealth until yesterday when she began noticing left arm, face, and leg paresthesias, slightly uncomfor table. She has told the other physician that it is coming and going type issue, but she tells me it is there fairly constantly. Some associated chest discomfort began about 6 p.m. last night. Came to the emergency department. CT scan of the brain negative/normal. Given the chest pain and paresthes ias, she was admitted. Since being admitted, pharmacologic stress test is nondiagnostic. Nuclear me dicine aspect of it is negative. She had an MRI cervical spine that demonstrates a disk herniation t hat abuts the cord and mildly narrowed the left exit foramen at C4/5. That study is personally revie wed. It is not anything that would require some type of transfer. There is no cord signal abnormali ty. The patient is normally on aspirin for vascular prophylaxis. Consultation was requested. Past Medical History: Hypertension, hyperlipidemia. Family History: Vascular disease in her mother, coronary disease in her mother. Social History: Employed. Normally independent activities of daily living. Review of Systems: General: Slight headache on the left with this event. No history of headaches. Eyes: Denies. Ears, nose, Throat: Negative. Cardiovascular: As alluded to. Pulmonary: Negative. GI: Negative. : Negative. Musculoskeletal: Negative. Neurologic: As noted. Psychiatric: Negative. Endocrine: Negative. Hematologic: Negative. Physical Examination: Vital Signs: 97.9, 76, 18, 122/66. General: Pleasant lady, lying in bed, in no distress. Awake, alert, oriented to time, person, place , and situation. Neck: Supple. No temporal artery tenderness. HEENT: Pupils reactive. Ocular motion full. Mckinney full. Face symmetric. Paresthesias left face to the middle of the lip. Tongue midline. Soft palate elevates bilaterally. Extremity: Strength full. Sensation, decreased left versus right temperature, vibration, and light touch with subjective paresthesias as well. No cortical extinction. Reflexes; 2/4 right, 2+/4 left. Toes bilaterally downgoing. Cerebellar exam demonstrates no ataxia. Pertinent Laboratory Data: LDL 107, creatinine 0.9. Liver function tests normal. CBC normal. Impression: Paresthesias. History very suggestive of a thalamic lesion. Right posterior thalamus w ill often generate this symptom complex. Plan: We will check a sedimentation rate, thyroid, B12, and she does need a brain MRI and stroke pro tocol with diffusion imaging. May require sedation for that; we will re-request. I do not think the abnormality in the cervical spine would require any type of imminent intervention. Increase the sta tin to 40 and add Plavix to her regimen for now. Thank you for the consult. We will continue to follow with you. ELAINE Voice ID: [id number] Report ID: [id number]
[2018-01-02] MEDS: HYDROCODONE/APAP 7.5/325 MG TAB PO PRN ×3 (03:19→17:53)
[2018-01-02 06:29] LABS: Absolute Lymphocytes (CBC) 1.4 K/uL (0.7-4.9); Absolute Monocytes 0.6 K/uL (0.1-1.3); Basophils % 0.6 % (0-1.3); Eosinophils % 2.3 % (0-4.4); Hematocrit 36.9 % (36.0-45.0); Lymphocytes % 27.6 % (15.3-44.8); MCH 30.5 pg (27.0-35.0); MCV 88.8 fL (80-100); MPV 7.9 fL (7.6-11.3); Monocytes % 11.1 % (3.3-12.3); RBC Red Blood Cell Count 4.16 M/uL (3.86-4.86)
[2018-01-02 07:09] LABS: BUN Blood Urea Nitrogen 13 mg/dL (7-18); Bicarbonate 30 mmol/L (21-32); Glucose Level 94 mg/dL (74-106); Magnesium 2.2 mg/dL (1.8-2.4); Sodium Level 141 mmol/L (136-145)
[2018-01-02] MEDS: INSULIN -REGULAR HUMAN 50 UNIT/0.5 ML ML SQ SCH ×4 (07:30→20:36)
[2018-01-02] MEDS ORDERED: ATORVASTATIN 20 MG TAB PO SCH (09:00)
[2018-01-02] MEDS: ENOXAPARIN 40 MG/0.4 ML SQ SCH (09:36)
[2018-01-02] MEDS: CLOPIDOGREL 75 MG TABLET PO SCH (09:36)
[2018-01-02] MEDS: ASPIRIN EC 81 MG TAB PO SCH (09:36)
[2018-01-02] MEDS: ATORVASTATIN 20 MG TAB PO SCH (09:36)
--- NOTE | 2018-01-02 10:15 | RAD REPORT ---
EXAM DESCRIPTION: MRI - Stroke Protocol - 01/01/2018 10:31 pm CLINICAL HISTORY: Left-sided numbness COMPARISON: December 31, 2017 cat scan TECHNIQUE: Axial, sagittal and coronal magnetic resonance images of the brain were obtained. 20 cc MultiHance was administered. Magnetic resonance angiography of the head and neck was performed. [facility] e images were reviewed and reconstructed at 360 degrees rotation. FINDINGS: No abnormal enhancement within the brain is seen. No abnormal signal within the brain is noted. The ventricles are normal caliber. An extra-axial fluid collection is not seen. Diffusion-hong ghted/ADC mapping does not reveal evidence of an acute infarction. Minimal cerebellar tonsillar ectop ia is seen. Sinuses and mastoids are clear. The common, internal and external carotid arteries do not demonstrate a significant stenosis. The pa tebral arteries are unremarkable. origin of the right posterior cerebral artery is seen The visualized anterior cerebral, middle cerebral, posterior cerebral, basilar and distal internal c arotid arteries do not demonstrate a significant stenosis. An aneurysm is not seen IMPRESSION: Minimal cerebellar tonsillar ectopia is present. Otherwise, unremarkable brain MRI Unremarkable MRA head and neck
--- NOTE | 2018-01-02 11:43 | RAD REPORT ---
EXAM DESCRIPTION: RAD - Wrist Left 2 View - 01/02/2018 11:37 am CLINICAL HISTORY: left wrist/hand pain Pain COMPARISON: No comparisons FINDINGS: Mild radiocarpal arthritic changes. No foreign body or other soft tissue abnormality. No acute fracture or dislocation. IMPRESSION: Mild radiocarpal arthritic changes.
[2018-01-02] MEDS: GABAPENTIN 300 MG CAP PO SCH ×2 (14:07→20:36)
--- NOTE | 2018-01-02 15:18 | RAD REPORT ---
EXAM DESCRIPTION: [facility] - CP - 01/02/2018 3:13 pm CLINICAL HISTORY: CVA COMPARISON: Stroke Protocol dated 01/01/2018 TECHNIQUE: Real-time sonographic evaluation of both carotid systems was performed. Doppler interroga tion was performed with waveform tracing bilaterally. FINDINGS: Normal high resistance waveforms are noted in both external carotid arteries. The common c arotid arteries and internal carotid arteries show normal low resistance waveforms. No significant plaque formation is seen. Peak systolic and end diastolic velocity values and the ICA/ CCA ratios are in the non-hemodynamically significant range. Antegrade flow seen in both vertebral arteries. IMPRESSION: No significant atherosclerotic changes noted. No evidence of a hemodynamically significant stenosis.
[2018-01-02] MEDS: hydroCHLOROthiazide 25 MG TAB PO SCH (16:09)
[2018-01-02] MEDS: AMLODIPINE 5 MG TAB PO SCH (16:10)
[2018-01-02] MEDS: LISINOPRIL 10 MG TAB PO SCH (16:10)
[2018-01-02] MEDS ORDERED: MECLIZINE HCL 12.5 MG TAB PO ONE (17:15)
--- NOTE | 2018-01-02 17:48 | DS ---
Date of Discharge: 01/02/2018 Consultants: Dr. Avelar with neurology, Dr. Westbrook with cardiology. Procedures: 01/01/2018, stress test, which was negative. Admitting Diagnoses: 1. Paresthesias. 2. Essential hypertension. 3. Chest pain. Discharge Diagnoses: 1. Paresthesias, likely related to disk herniation in the cervical spine. 2. Cervical spine spondylosis. 3. Chest pain. Acute coronary syndrome ruled out. Stress test negative. 4. Essential hypertension. 5. Morbid obesity, body mass index 49. 6. Dyslipidemia. Lipitor dose adjusted. 7. Mild cerebellar tonsillar ectopy .. Hospital Course: The patient is a 47-year-old female, who came in with numbness of the left side of the face, arm, and leg along with headache. The patient has seen Neurology in the past. The patient also complained of some chest pain, which is intermittent. Therefore, she was admitted to the hospital for further evaluation. Regarding her chest pain, acute coronary syndrome was ruled out. Troponin levels were negative. The patient was also seen by roll setter, Dr. Westbrook and Dr. Vincent. Pharmacological stress test was done , which was negative. Echocardiogram was also done, which showed normal ejection fraction. The patient was therefore cleared from a chest pain standpoint. Regarding her paresthesias, cervical spine MRI was done, which did show some significant spondylosis and moderate cervical degenerative change with multilevel disk herniation, most severe at C4-C5. Dr. Avelar with neurology also evaluated the patient. The patient did not need any immediate intervention for her cervical spinal changes. The patient was feeling better. In regard to her headache and numbness, she was started on gabapentin for neuropathic pain. She did have the remainder of the workup including MRI of the brain, which did not show any acute infarct, however, did show cerebellar tonsillar ectopy. Her initial head CT scan did not show any changes either. The patient otherwise was able to ambulate okay by herself, did not have any other symptoms. The patient was then cleared for discharge and her symptoms improved. Her blood pressure had also improved. The patient was then cleared for discharge. her medication was adjusted. She was placed on Plavix and higher dose of statin. Condition: Stable. Activity: As tolerated. Medications: As per medication reconciliation list. Diet: Calorie restricted heart healthy diet. Followup: Follow up with primary care physician in 2-3 days. Follow up with neurologist, Dr. Avelar in 2 weeks. Follow up with roll setter, Dr. Westbrook in 2-4 weeks. Return to ER for worsening condition. The patient may need to follow up with neurosurgery as outpatient too for her cerebellar ectopia. Physical Examination: General: Awake, alert, oriented, no acute distress CV: S1, S2. No murmurs. Respiratory: moving air well bilaterally. Abdomen: Abdomen is soft, nontender, nondistended. Positive bowel sounds. Extremities: No clubbing, cyanosis, edema. Neurologic: Nonfocal. Addendum: Pt did not discharge yesterday due to dizziness. please see progress note from 01/03/18 for further details. Patient DC on 01/03/18. /SOLE Voice ID: [id number] Report ID: [id number] JUDSON
[2018-01-03] MEDS: HYDROCODONE/APAP 7.5/325 MG TAB PO PRN (05:18)
[2018-01-03] MEDS: INSULIN -REGULAR HUMAN 50 UNIT/0.5 ML ML SQ SCH (07:30)
[2018-01-03] MEDS: ASPIRIN EC 81 MG TAB PO SCH (09:00)
[2018-01-03] MEDS: ATORVASTATIN 20 MG TAB PO SCH (09:00)
[2018-01-03] MEDS: GABAPENTIN 300 MG CAP PO SCH (09:00)
[2018-01-03] MEDS: CLOPIDOGREL 75 MG TABLET PO SCH (09:00)
[2018-01-03] MEDS: LISINOPRIL 10 MG TAB PO SCH (09:00)
[2018-01-03] MEDS: ENOXAPARIN 40 MG/0.4 ML SQ SCH (09:00)
[2018-01-03] MEDS: hydroCHLOROthiazide 25 MG TAB PO SCH (09:00)
[2018-01-03] MEDS: AMLODIPINE 5 MG TAB PO SCH (09:00)
--- NOTE | 2018-01-03 12:26 | PN ---
Date of Progress Note: 01/03/2018 Subjective: The patient is seen and examined. Chart reviewed and case discussed with RN. The patie nt was discharged yesterday; however, prior to discharge while ambulating, became dizzy. Therefore, her discharge was held. The patient feels better this morning. Headache is improved. Dizziness is also improved. Review of Systems: Negative except as above. Medications: List reviewed. Physical Examination: Vital Signs: Temperature 96.7, heart rate 75, blood pressure 137/88, respirations 18, O2 100% on isa m air. Orthostatic blood pressures; lying 148/90, sitting 161/92, standing 160/113 which is negative . General: Awake, alert, oriented, no acute distress. CV: S1, S2. No murmurs. Respiratory: Moving air well bilaterally. Abdomen: Soft, nontender, nondistended. Positive bowel sounds. Extremities: No clubbing, cyanosis, edema. Neurologic: Nonfocal. Assessment And Plan: A 47-year-old female with: 1.Paresthesias, likely secondary to cervical spine spondylosis. 2.Cervical spine spondylosis. 3.Chest pain, acute coronary syndrome ruled out. 4.Essential hypertension. 5.Morbid obesity, BMI 49. 6.Dyslipidemia. 7.Mild cerebellar tonsillar ectopy. Plan: Discharge home. EUGENIE Voice ID: [id number] Report ID: [id number]
== END 2018-01-03 10:16 | disposition home or self-care (01) ==
LOC: ER 21:28 → ERHOLD 23:55 → 4TH 01-01 00:51
PROVIDERS: ADMIT Internal Medicine; ATTEND Internal Medicine
DX: R20.2 Paresthesia of skin (principal); M47.892 Other spondylosis, cervical region; R07.9 Chest pain, unspecified; I10 Essential (primary) hypertension; E66.01 Morbid (severe) obesity due to excess calories; Z68.42 Body mass index [BMI] 45.0-49.9, adult; E78.5 Hyperlipidemia, unspecified; Q40.8 Other specified congenital malformations of upper alimentary tract
CPT/HCPCS: 36415; 70450; 70544; 70549; 70553; 71045; 72141; 78452; 80048; 80061; 80076; 81003; 81025; 82607; 82962; 83735; 83880; 84443; 84484; 85025; 85610; 85652; 93005; 93017; 93306; 93880; 96374; 99285; A9500; A9577; G0378; J1650; J2785; J3010

== ENCOUNTER 2018-03-13 01:17 | Observation (INO) | payer OTHER ==
[2018-03-13] MEDS ORDERED: LORazepam 2 MG/ML VIAL ONE (01:36)
[2018-03-13 01:51] LABS: Absolute Lymphocytes (CBC) 2.7 K/uL (0.7-4.9); Absolute Monocytes 0.5 K/uL (0.1-1.3); Absolute Neutrophil 4.2 K/uL (1.8-8.0); Basophils % 0.5 % (0-1.3); Eosinophils % 0.3 % (0-4.4); Hematocrit 40.9 % (36.0-45.0); Lymphocytes % 35.8 % (15.3-44.8); MCV 88.6 fL (80-100); MPV 8.6 fL (7.6-11.3); RBC Red Blood Cell Count 4.62 M/uL (3.86-4.86)
[2018-03-13] MEDS ORDERED: FAMOTIDINE 20 MG/2 ML VIAL IV ONE (01:52)
[2018-03-13] MEDS ORDERED: NA CHLORIDE 0.9% 1,000 ML ONE (01:52)
[2018-03-13] MEDS ORDERED: ONDANSETRON 4 MG/2 ML VIAL ONE ×2 (01:52→03:26)
[2018-03-13] MEDS ORDERED: FENTANYL CITR 100 MCG/2 ML ONE ×2 (01:52→03:26)
[2018-03-13 02:01] LABS: Protime INR 1.04
[2018-03-13 02:21] LABS: ALT/SGPT 22 U/L (12-78); AST/SGOT 18 U/L (15-37); Albumin 4.2 g/dL (3.4-5.0); Alkaline Phosphatase 99 U/L (45-117); BUN Blood Urea Nitrogen 19 mg/dL (7-18); Bicarbonate 26 mmol/L (21-32); Bilirubin Direct 0.1 mg/dL (0-0.2); Bilirubin Total 0.6 mg/dL (0.2-1.0); Glucose Level 173 mg/dL (74-106); Lipase 140 U/L (73-393); NT PRO-BNP 6 pg/mL (<125); Potassium 3.5 mmol/L (3.5-5.1); Protein, Total 8.6 g/dL (6.4-8.2); Sodium Level 135 mmol/L (136-145); Troponin (Emerg Dept Use Only) < 0.02 ng/mL (0.0-0.045)
--- NOTE | 2018-03-13 03:15 | ER ---
Nurse's Notes [facility] Name: Etta Boyd Age: 47 yrs Sex: Female : 1970 Arrival Date: 03/13/2018 Time: 01:18 Bed 6 Private MD: Yamel Henson K Diagnosis: Abdominal tenderness;Vomiting;Obesity, unspecified Presentation: 03/13 01:21 Presenting complaint: Patient states: she started antibiotics for an ear infection and bb at approx 2330 last night she woke up with abdominal pain, vomiting and diarrhea. Transition of care: patient was not received from another setting of care. Onset of symptoms was March 12, 2018. Risk Assessment: Do you want to hurt yourself or someone else? Patient reports no desire to harm self or others. Initial Sepsis Screen: Does the patient meet any 2 criteria? No. Patient's initial sepsis screen is negative. Does the patient have a suspected source of infection? No. Patient's initial sepsis screen is negative. 01:21 Method Of Arrival: Wheelchair bb 01:21 Acuity: FALGUNI 3 bb 01:21 Care prior to arrival: None. cc3 Triage Assessment: 01:22 General: Appears distressed, uncomfortable, Behavior is cooperative, anxious. Pain: cc3 Complains of pain in abdomen Pain currently is 10 out of 10 on a pain scale. Quality of pain is described as aching, Pain began 2 hours ago. EENT: Reports she's on antibiotic treatment for her ear infection. Neuro: Level of Consciousness is awake, alert, obeys commands, Oriented to person, place, time, situation, Appropriate for age. Cardiovascular: Denies chest pain. Respiratory: Airway is patent Respiratory effort is even, unlabored, Respiratory pattern is regular, symmetrical. GI: Pt is actively vomiting saliva. GI: Reports lower abdominal pain, upper abdominal pain, diarrhea, nausea, vomiting. : No signs and/or symptoms were reported regarding the genitourinary system. Derm: No signs and/or symptoms reported regarding the dermatologic system. Musculoskeletal: Circulation, motion, and sensation intact. Range of motion: intact in all extremities. 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 cc3 Historical: - Allergies: 01:24 No Known Allergies; bb - Home Meds: 01:24 amlodipine 5 mg tab 1 tab once daily [Active]; aspirin 81 mg Oral chew 1 tab once daily bb [Active]; atorvastatin 20 mg Oral tab 1 tab once daily [Active]; Hydrochlorothiazide Oral once daily [Active]; metoprolol tartrate 100 mg Oral tab 1 tab once daily [Active]; lisinopril 40 mg Oral tab 1 tab once daily [Active]; - PMHx: 01:24 Hyperlipidemia; Hypertension; bb - PSHx: 01:24 None; bb - Immunization history:: Adult Immunizations up to date. - Social history:: Smoking status: Patient/guardian denies using tobacco, Patient/guardian denies using alcohol, street drugs. - Ebola Screening: : No symptoms or risks identified at this time. - Family history:: not pertinent. Screenin:22 Abuse screen: Denies threats or abuse. Denies injuries from another. Nutritional cc3 screening: No deficits noted. Tuberculosis screening: No symptoms or risk factors identified. Fall Risk Ambulatory Aid- None/Bed Rest/Nurse Assist (0 pts). Gait- Normal/Bed Rest/Wheelchair (0 pts) Mental Status- Oriented to own ability (0 pts). Assessment: 01:25 Reassessment: see triage assessment. cc3 01:25 GI: Bowel sounds present X 4 quads. Abd is soft and non tender X 4 quads. cc3 02:28 Reassessment: Patient appears in no apparent distress at this time. Patient and/or cc3 family updated on plan of care and expected duration. Pain level reassessed. Patient is alert, oriented x 3, equal unlabored respirations, skin warm/dry/pink. Patient finished her oral contrast, informed CT scan department at extension [phone]. 03:13 Reassessment: Called again CT scan department at extension [phone] to as regarding the CT cc3 scan appointment of the patient and the copier field service technician said the patient is due at 0400H. Patient is for admission under Dr. Favian Gotti, waiting for admission orders. 04:00 Reassessment: Patient and/or family updated on plan of care and expected duration. Pain cc3 level reassessed. Patient is alert, oriented x 3, equal unlabored respirations, skin warm/dry/pink. 04:30 Reassessment: Patient came back from CT scan department, CT scan of abdomen/pelvis with cc3 contrast done as ordered. Room assigned to 206, to wait for CT scan result before sending the patient for admission, charge nurse Lorie aware. 05:00 Reassessment: Patient appears in no apparent distress at this time. Patient and/or cc3 family updated on plan of care and expected duration. Pain level reassessed. Patient is alert, oriented x 3, equal unlabored respirations, skin warm/dry/pink. CT scan abdomen/pelvis report came. Called med-surg at extension [phone] to call for report and charge nurse Nurys said the nurse who will receive will call after 5 minutes. 05:15 Reassessment: Patient appears in no apparent distress at this time. Patient and/or cc3 family updated on plan of care and expected duration. Pain level reassessed. Patient is alert, oriented x 3, equal unlabored respirations, skin warm/dry/pink. Report handed over to LAURA Aquino for continuity of care and management. Patient left ER vitally stable by wheelchair. Vital Signs: 01:24 BP 102 / 62; Pulse 117; Resp 22 S; Temp 98.7(O); Pulse Ox 100% on R/A; Weight 130.63 kg bb (R); Height 5 ft. 4 in. (162.56 cm) (R); Pain 10/10; 02:13 BP 112 / 82; Pulse 107; Resp 20 S; Pulse Ox 99% on R/A; Pain 5/10; cc3 03:30 BP 117 / 83; Pulse 110; Resp 20 S; Pulse Ox 98% on R/A; cc3 04:00 BP 117 / 74; Pulse 99; Resp 20 S; Pulse Ox 99% on R/A; cc3 05:00 BP 118 / 73; Pulse 98; Resp 19 S; Pulse Ox 100% on R/A; cc3 01:24 Body Mass Index 49.43 (130.63 kg, 162.56 cm) ED Course: 01:18 Patient arrived in ED. am2 01:18 Yamel Henson MD is Private Physician. am2 01:20 Inserted saline lock: 20 gauge in right antecubital area, using aseptic technique. cc3 Blood collected. 01:21 Ayden Lange MD is Attending Physician. [facility] 01:22 Triage completed. 01:22 Patient has correct armband on for positive identification. Bed in low position. Call cc3 light in reach. Side rails up X 1. 01:23 Enrique Ha, LAURA is Primary Nurse. bp 01:24 Arm band placed on Patient placed in an exam room, on a stretcher, on pulse oximetry. bb 01:43 X-ray completed. Portable x-ray completed in exam room. Patient tolerated procedure kw well. 01:44 XRAY Chest (1 view) In Process Unspecified. EDMS 03:13 Shen Ballesteros MD is Hospitalizing Provider. lito 03:30 Cleaned of incontinence. Linen changed. bb 05:15 No provider procedures requiring assistance completed. Patient admitted, IV remains in cc3 place. Administered Medications: 01:30 Drug: Ativan 1 mg Route: IVP; Site: right antecubital; cc3 01:50 Follow up: Response: No adverse reaction; Anxiety decreased cc3 01:45 Drug: NS 0.9% 1000 ml Route: IV; Rate: 1 bolus; Site: right antecubital; cc3 05:00 Follow up: Response: No adverse reaction; IV Status: Completed infusion; IV Intake: cc3 1000ml 01:45 Drug: Zofran 4 mg Route: IVP; Site: right antecubital; cc3 02:15 Follow up: Response: No adverse reaction; Nausea is decreased cc3 01:48 Drug: fentaNYL (PF) 50 mcg Route: IVP; Site: right antecubital; cc3 02:15 Follow up: Response: No adverse reaction; Pain is decreased cc3 01:52 Drug: Pepcid 20 mg Route: IVP; Site: right antecubital; cc3 02:15 Follow up: Response: No adverse reaction cc3 03:30 Drug: fentaNYL (PF) 50 mcg Route: IVP; Site: right antecubital; cc3 04:00 Follow up: Response: No adverse reaction; Pain is decreased cc3 03:33 Drug: Zofran 4 mg Route: IVP; Site: right antecubital; cc3 04:00 Follow up: Response: No adverse reaction; Nausea is decreased; Vomiting decreased cc3 03:40 Drug: Flagyl 500 mg Volume: 100 ml; Route: IVPB; Rate: 200 ml/hr; Infused Over: 30 cc3 mins; Site: right antecubital; 04:15 Follow up: Response: No adverse reaction; IV Status: Completed infusion; IV Intake: cc3 100ml 03:45 Drug: Cipro 400 mg Volume: 200 ml; Route: IVPB; Infused Over: 60 mins; Site: right cc3 antecubital; 05:00 Follow up: IV Status: Infusion continued upon admission cc3 Intake: 04:15 IV: 100ml; Total: 100ml. cc3 05:00 IV: 1000ml; Total: 1100ml. cc3 Outcome: 03:14 Decision to Hospitalize by Provider. lito 05:15 Admitted to Med/surg accompanied by nurse, via wheelchair, room 206, with chart, Report cc3 called to LAURA Aquino 05:15 Condition: stable 05:15 Instructed on the need for admit. 05:47 Patient left the ED. cc3 Signatures: Dispatcher [employer] EDMS Ayden Lange MD MD cha Ballard, Brenda, RN RN Екатерина Constantino Amanda am2 Peltier, Brian, RN RN bp Cordel, Charlene cc3 Corrections: (The following items were deleted from the chart) 02:05 01:22 GI: Reports nausea, vomiting, cc3 cc3 02:06 01:22 GI: Reports diarrhea, nausea, vomiting, cc3 cc3 04:17 03:13 Reassessment: Called again CT scan department at extension [phone] to as regarding cc3 the CT scan appointment of the patient and the copier field service technician said the patient is due at 0400H. cc3 04:55 04:30 Reassessment: Patient came back from CT scan department. cc3 cc3 04:58 04:30 Reassessment: Patient came back from CT scan department, CT scan of cc3 abdomen/pelvis with contrast done as ordered. To wait for CT scan result before sending the patient for admission. cc3
--- NOTE | 2018-03-13 03:15 | EDPHYS ---
Physician Documentation [facility] Name: Etta Boyd Age: 47 yrs Sex: Female : 1970 Arrival Date: 03/13/2018 Time: 01:18 Bed 6 Private MD: Yamel Henson K ED Physician Ayden Lange HPI: 03/13 01:36 This 47 yrs old Black Female presents to ER via Wheelchair with complaints of Abdominal lito Pain. 01:36 The patient presents with abdominal pain in the epigastric area, in the upper abdomen, lito abdominal distention in the upper abdomen, in the lower abdomen. Onset: The symptoms/episode began/occurred last night. The symptoms do not radiate. Associated signs and symptoms: none. The symptoms are described as constant, crampy. Modifying factors: The symptoms are alleviated by nothing, the symptoms are aggravated by nothing. Severity of pain: At its worst the pain was moderate in the emergency department the pain is unchanged. The patient has not experienced similar symptoms in the past. 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 cc3 Historical: - Allergies: 01:24 No Known Allergies; bb - Home Meds: 01:24 amlodipine 5 mg tab 1 tab once daily [Active]; aspirin 81 mg Oral chew 1 tab once daily bb [Active]; atorvastatin 20 mg Oral tab 1 tab once daily [Active]; Hydrochlorothiazide Oral once daily [Active]; metoprolol tartrate 100 mg Oral tab 1 tab once daily [Active]; lisinopril 40 mg Oral tab 1 tab once daily [Active]; - PMHx: 01:24 Hyperlipidemia; Hypertension; bb - PSHx: 01:24 None; bb - Immunization history:: Adult Immunizations up to date. - Social history:: Smoking status: Patient/guardian denies using tobacco, Patient/guardian denies using alcohol, street drugs. - Ebola Screening: : No symptoms or risks identified at this time. - Family history:: not pertinent. ROS: 01:36 Constitutional: Negative for fever, chills, and weight loss, Eyes: Negative for injury, lito pain, redness, and discharge, ENT: Negative for injury, pain, and discharge, Neck: Negative for injury, pain, and swelling, Cardiovascular: Negative for chest pain, palpitations, and edema, Respiratory: Negative for shortness of breath, cough, wheezing, and pleuritic chest pain, Back: Negative for injury and pain, : Negative for injury, bleeding, discharge, and swelling, MS/Extremity: Negative for injury and deformity, Skin: Negative for injury, rash, and discoloration, Neuro: Negative for headache, weakness, numbness, tingling, and seizure, Psych: Negative for depression, anxiety, suicide ideation, homicidal ideation, and hallucinations, Allergy/Immunology: Negative for hives, rash, and allergies, Endocrine: Negative for neck swelling, polydipsia, polyuria, polyphagia, and marked weight changes, Hematologic/Lymphatic: Negative for swollen nodes, abnormal bleeding, and unusual bruising. 01:36 Abdomen/GI: Positive for abdominal pain, nausea and vomiting, of the epigastric area, right upper quadrant and left upper quadrant. Exam: 01:36 Constitutional: This is a well developed, well nourished patient who is awake, alert, lito and in no acute distress. Head/Face: Normocephalic, atraumatic. Eyes: Pupils equal round and reactive to light, extra-ocular motions intact. Lids and lashes normal. Conjunctiva and sclera are non-icteric and not injected. Cornea within normal limits. Periorbital areas with no swelling, redness, or edema. ENT: Nares patent. No nasal discharge, no septal abnormalities noted. Tympanic membranes are normal and external auditory canals are clear. Oropharynx with no redness, swelling, or masses, exudates, or evidence of obstruction, uvula midline. Mucous membranes moist. Neck: Trachea midline, no thyromegaly or masses palpated, and no cervical lymphadenopathy. Supple, full range of motion without nuchal rigidity, or vertebral point tenderness. No Meningismus. Chest/axilla: Normal chest wall appearance and motion. Nontender with no deformity. No lesions are appreciated. Cardiovascular: Regular rate and rhythm with a normal S1 and S2. No gallops, murmurs, or rubs. Normal PMI, no JVD. No pulse deficits. Respiratory: Lungs have equal breath sounds bilaterally, clear to auscultation and percussion. No rales, rhonchi or wheezes noted. No increased work of breathing, no retractions or nasal flaring. Back: No spinal tenderness. No costovertebral tenderness. Full range of motion. Female : Normal external genitalia. Skin: Warm, dry with normal turgor. Normal color with no rashes, no lesions, and no evidence of cellulitis. MS/ Extremity: Pulses equal, no cyanosis. Neurovascular intact. Full, normal range of motion. Neuro: Awake and alert, GCS 15, oriented to person, place, time, and situation. Cranial nerves II-XII grossly intact. Motor strength 5/5 in all extremities. Sensory grossly intact. Cerebellar exam normal. Normal gait. Psych: Awake, alert, with orientation to person, place and time. Behavior, mood, and affect are within normal limits. 01:36 Abdomen/GI: Inspection: abdomen appears normal, Bowel sounds: active, Palpation: mild abdominal tenderness, in the epigastric area, right upper quadrant and left upper quadrant, moderate abdominal tenderness, Liver: no appreciated palpable abnormalities, Hernia: not appreciated. 01:59 Musculoskeletal/extremity: DVT Exam: No signs of deep vein thrombosis. no pain, no lito swelling, no tenderness, negative Homans' sign noted on exam, no appreciated bluish discoloration, no erythema, no increased warmth. Vital Signs: 01:24 BP 102 / 62; Pulse 117; Resp 22 S; Temp 98.7(O); Pulse Ox 100% on R/A; Weight 130.63 kg bb (R); Height 5 ft. 4 in. (162.56 cm) (R); Pain 10/10; 02:13 BP 112 / 82; Pulse 107; Resp 20 S; Pulse Ox 99% on R/A; Pain 5/10; cc3 03:30 BP 117 / 83; Pulse 110; Resp 20 S; Pulse Ox 98% on R/A; cc3 04:00 BP 117 / 74; Pulse 99; Resp 20 S; Pulse Ox 99% on R/A; cc3 05:00 BP 118 / 73; Pulse 98; Resp 19 S; Pulse Ox 100% on R/A; cc3 01:24 Body Mass Index 49.43 (130.63 kg, 162.56 cm) MDM: 01:21 Patient medically screened. [facility] 01:38 Data reviewed: vital signs, nurses notes, lab test result(s), EKG, radiologic studies, [facility] CT scan, plain films. 03/13 01:20 Order name: Basic Metabolic Panel; Complete Time: 03:09 [facility] 03/13 01:20 Order name: CBC with Diff; Complete Time: 03:09 [facility] 03/13 01:20 Order name: LFT's; Complete Time: 03:09 [facility] 03/13 01:20 Order name: Magnesium; Complete Time: 03:09 [facility] 03/13 01:20 Order name: NT PRO-BNP; Complete Time: 03:09 [facility] 03/13 01:20 Order name: PT-INR; Complete Time: 03:09 [facility] 03/13 01:20 Order name: Troponin (emerg Dept Use Only); Complete Time: 03:09 [facility] 03/13 01:20 Order name: Lipase; Complete Time: 03:09 [facility] 03/13 03:21 Order name: Basic Metabolic Panel [facility] 03/13 03:21 Order name: Basic Metabolic Panel [facility] 03/13 03:21 Order name: CBC with Automated Diff [facility] 03/13 03:21 Order name: CBC with Automated Diff [facility] 03/13 03:21 Order name: Lipase [facility] 03/13 03:21 Order name: Lipase [facility] 03/13 01:20 Order name: XRAY Chest (1 view) [facility] 03/13 01:20 Order name: CT Abd/Pelvis - W/Contrast [facility] 03/13 03:16 Order name: US Abdomen Limited [facility] 03/13 03:21 Order name: Liver (Hepatic) Function [facility] 03/13 03:21 Order name: Liver (Hepatic) Function [facility] 03/13 03:22 Order name: Urine Culture [facility] 03/13 04:00 Order name: Urine Dipstick--Ancillary (enter results) [facility] 03/13 04:01 Order name: Urine Dipstick-Ancillary [facility] 03/13 01:20 Order name: EKG; Complete Time: 01:21 [facility] 03/13 01:20 Order name: Cardiac monitoring; Complete Time: 01:41 [facility] 03/13 01:20 Order name: EKG - Nurse/Tech; Complete Time: 01:41 [facility] 03/13 01:20 Order name: IV Saline Lock; Complete Time: 01:39 [facility] 03/13 01:20 Order name: Labs collected and sent; Complete Time: 01:39 [facility] 03/13 01:20 Order name: O2 Per Protocol; Complete Time: 01:40 [facility] 03/13 01:20 Order name: O2 Sat Monitoring; Complete Time: :40 snw 03/13 03:21 Order name: NPO EDMS Administered Medications: 01:30 Drug: Ativan 1 mg Route: IVP; Site: right antecubital; cc3 01:50 Follow up: Response: No adverse reaction; Anxiety decreased cc3 01:45 Drug: NS 0.9% 1000 ml Route: IV; Rate: 1 bolus; Site: right antecubital; cc3 05:00 Follow up: Response: No adverse reaction; IV Status: Completed infusion; IV Intake: cc3 1000ml 01:45 Drug: Zofran 4 mg Route: IVP; Site: right antecubital; cc3 02:15 Follow up: Response: No adverse reaction; Nausea is decreased cc3 01:48 Drug: fentaNYL (PF) 50 mcg Route: IVP; Site: right antecubital; cc3 02:15 Follow up: Response: No adverse reaction; Pain is decreased cc3 01:52 Drug: Pepcid 20 mg Route: IVP; Site: right antecubital; cc3 02:15 Follow up: Response: No adverse reaction cc3 03:30 Drug: fentaNYL (PF) 50 mcg Route: IVP; Site: right antecubital; cc3 04:00 Follow up: Response: No adverse reaction; Pain is decreased cc3 03:33 Drug: Zofran 4 mg Route: IVP; Site: right antecubital; cc3 04:00 Follow up: Response: No adverse reaction; Nausea is decreased; Vomiting decreased cc3 03:40 Drug: Flagyl 500 mg Volume: 100 ml; Route: IVPB; Rate: 200 ml/hr; Infused Over: 30 cc3 mins; Site: right antecubital; 04:15 Follow up: Response: No adverse reaction; IV Status: Completed infusion; IV Intake: cc3 100ml 03:45 Drug: Cipro 400 mg Volume: 200 ml; Route: IVPB; Infused Over: 60 mins; Site: right cc3 antecubital; 05:00 Follow up: IV Status: Infusion continued upon admission cc3 Disposition: 03/13/18 03:14 Hospitalization ordered by Shen Ballesteros for Observation. Preliminary diagnosis are Abdominal tenderness, Vomiting, Obesity, unspecified. - Bed requested for Telemetry/MedSurg (Inpatient). - Status is Observation. cc3 - Condition is Stable. - Problem is new. - Symptoms have improved. UTI on Admission? No Signatures: Dispatcher [employer] EDGloria French, RN RN Ayden Robertson MD MD cha Therrien, Shelly, PARTS SALES ADVISOR-C PARTS SALES ADVISOR-Csnw Lorie Hinds, LAURA RN Miryam Dickerson cc3 Corrections: (The following items were deleted from the chart) 03:34 03:14 Hospitalization Ordered by Shen Ballesteros MD for Observation. Preliminary diagnosis kl is Abdominal tenderness; Vomiting; Obesity, unspecified. Bed requested for Telemetry/MedSurg (Inpatient). Status is Observation. Condition is Stable. Problem is new. Symptoms have improved. UTI on Admission? No. lito 05:47 03:34 03/13/2018 03:14 Hospitalization Ordered by Shen Ballesteros MD for Observation. cc3 Preliminary diagnosis is Abdominal tenderness; Vomiting; Obesity, unspecified. Bed requested for Telemetry/MedSurg (Inpatient). Status is Observation. Condition is Stable. Problem is new. Symptoms have improved. UTI on Admission? No. kl
[2018-03-13] MEDS ORDERED: ACETAMINOPHEN 500 MG TAB PO PRN (03:18)
[2018-03-13] MEDS ORDERED: D5 0.45 NS 1,000 ML IV SCH (04:00)
[2018-03-13] MEDS: NA CHLORIDE 0.9% 1,000 ML IV SCH ×3 (04:00→18:00)
[2018-03-13 04:50] LABS: Urine Blood 1+ (NEG); Urine Glucose NEGATIVE (NEG); Urine Protein 1+ (NEG); Urine Specific Gravity 1.025 (1.005-1.030)
[2018-03-13] MEDS: MORPHINE 4 MG/ML SYR IV PRN ×4 (05:55→20:43)
--- NOTE | 2018-03-13 08:17 | RAD REPORT ---
EXAM DESCRIPTION: RAD - Chest Single View - 03/13/2018 1:46 am CLINICAL HISTORY: ABDOMINAL DISTENTION Chest pain. COMPARISON: Chest Single View dated 12/31/2017; Chest Single View dated 05/20/2017; CHEST SINGLE VIEW dated 01/25/2008; Abdomen Pelvis W Contrast dated 03/13/2018 FINDINGS: Portable technique limits examination quality. The lungs are grossly clear. The heart is mildly prominent in size. No displaced fractures. IMPRESSION: No acute intrathoracic process suspected.
--- NOTE | 2018-03-13 08:29 | RAD REPORT ---
EXAM DESCRIPTION: CTAbdomen Pelvis W Contrast - 03/13/2018 5:26 am CLINICAL HISTORY: Abdominal pain. ABD PAIN COMPARISON: Abdomen Pelvis W Contrast dated 01/31/2016 TECHNIQUE: Biphasic CT imaging of the abdomen and pelvis was performed with 100 ml non-ionic IV cont rast. All CT scans are performed using dose optimization technique as appropriate and may include automated exposure control or mA/KV adjustment according to patient size. FINDINGS: The lung bases are clear. The liver demonstrates mild fatty infiltration. The spleen, pancreas, adrenal glands and kidneys are within normal limits. No bowel obstruction, free air, free fluid or abscess. The appendix is normal. No evidence of signi ficant lymphadenopathy. No suspicious bony findings. Hysterectomy. IMPRESSION: No acute intra-abdominal or pelvic finding. Fatty liver.
--- NOTE | 2018-03-13 08:35 | RAD REPORT ---
EXAM DESCRIPTION: US - Abdomen Exam Limited - 03/13/2018 7:46 am CLINICAL HISTORY: ABD PAIN COMPARISON: ABDOMINAL EXAM LIMITED dated 06/15/2007; Abdomen Pelvis W Contrast dated 03/13/2018 FINDINGS: The gallbladder demonstrates no gallstones. No pericholecystic fluid or gallbladder wall t hickening. The common bile duct is normal measuring 2 mm. The liver demonstrates diffuse fatty liver. IMPRESSION: Negative gallbladder/biliary tree findings. Fatty liver.
[2018-03-13] MEDS: ONDANSETRON 4 MG/2 ML VIAL IV PRN ×2 (08:51→20:44)
[2018-03-13] MEDS: ATORVASTATIN 20 MG TAB PO SCH (09:00)
[2018-03-13] MEDS: METOPROLOL TAR 50 MG TAB PO SCH (09:00)
[2018-03-13] MEDS: LISINOPRIL 20 MG TAB PO SCH (09:00)
[2018-03-13] MEDS: AMLODIPINE 5 MG TAB PO SCH (09:00)
[2018-03-13] MEDS: FAMOTIDINE 20 MG/2 ML VIAL IV SCH ×2 (09:29→20:43)
[2018-03-13] MEDS: METRONIDAZOLE 500mg IVPB 500 MG/100 ML BAG IV SCH ×3 (11:16→23:15)
[2018-03-13] MEDS ORDERED: PNEUMOCOCCAL VACCINE 0.5 ML IMVAC ONE (12:00)
[2018-03-13 15:54] LABS: Thyroid Stimulating Hormone 0.545 uIU/mL (0.360-3.740)
[2018-03-13] MEDS: Ciprofloxacin 200mg IV 200 MG/100 ML IV.SOLN. IV SCH (16:00)
[2018-03-13] MEDS: ENOXAPARIN 80 MG/0.8 ML SQ SCH (17:04)
--- NOTE | 2018-03-13 18:45 | RAD REPORT ---
EXAM DESCRIPTION: USExtrembill Venous Uni Ltd03/13/2018 6:35 pm CLINICAL HISTORY: Right leg pain and swelling. COMPARISON: 2013 FINDINGS: Right common femoral, superficial femoral, popliteal and right posterior tibial veins are compressible and demonstrate augmentation. Doppler demonstrates good flow. IMPRESSION: No evidence of deep venous thrombosis involving the right lower extremity.
[2018-03-14] MEDS: Ciprofloxacin 200mg IV 200 MG/100 ML IV.SOLN. IV SCH ×2 (02:39→14:28)
--- NOTE | 2018-03-14 04:35 | HP ---
Date of Admission: 03/13/2018 Chief Complaints: Nausea, vomiting, and diarrhea after taking Augmentin by Dr. Yamel Henson. History Of Present Illness: The patient is a 47-year-old lady who goes to Dr. Henson for her care. For left ear infection, she has received Augmentin by Dr. Henson, and after that she became sick with nausea and vomiting and diarrhea, which had resolved now. She reports to emergency room for thi s. She has some additional complaints. While she is here, her right leg is hurting and right thigh is giving a shooting pain, but her abdominal pain and nausea and vomiting have resolved. Past Medical History: High blood pressure. Allergies: CEFTRIAXONE. Medications: List of her medications include lisinopril 40 mg once a day; Lipitor once a day, dose u nclear; amlodipine 5 mg once a day; metoprolol 100 mg once a day; spironolactone 25 mg once a day; an d hydrochlorothiazide 25 mg once a day. Physical Examination: General: Patient is obese lady. Vital Signs: Temperature of 99.0, pulse 103, blood pressure 121/73, O2 saturation of 92%. HEENT Exam: No JVD. No carotid bruits. Chest: Clear. Heart: Regular. Abdomen: No guarding, no rebound, no rigidity. Extremities: There are no signs of infection or cellulitis on her legs, and there are no signs of ed ne. Laboratory Data: I reviewed the lab. White count is normal. Hemoglobin and hematocrit and platelet s are normal. Sodium 135, potassium 3.5, BUN 19, creatinine 1.2. Glucose 173, nonfasting blood. I ordered D-dimer because of her baseline tachycardia, and D-dimer is 895 which is high. Her T4 and TS H are normal, and her BNP is normal. Assessment And Plan: 1.Side effect to Augmentin has resolved. Nausea, vomiting, and diarrhea had resolved. 2.Tachycardia and elevated D-dimer. We cannot repeat a CT scan of the chest today because she had d ye this morning and we will therefore redo the test tomorrow. Until then, she will be covered with L ovenox 1 mg/kg subcu b.i.d. I also ordered an EKG because it is unclear why she gets tachycardia off and on. So far, otherwise she is clinically stable. Seems to lose weight; I have told her how. 3.Right thigh pain and right leg pain. I ordered venous Doppler for right leg. Further evaluation will be done by Dr. Henson on outpatient basis. VLADIMIR/SOLE Voice ID: [id number]
[2018-03-14 05:01] LABS: Absolute Lymphocytes (CBC) 1.2 K/uL (0.7-4.9); Absolute Monocytes 0.6 K/uL (0.1-1.3); Absolute Neutrophil 2.6 K/uL (1.8-8.0); Basophils % 0.3 % (0-1.3); Eosinophils % 2.8 % (0-4.4); Hematocrit 36.3 % (36.0-45.0); Lymphocytes % 25.3 % (15.3-44.8); MCH 30.8 pg (27.0-35.0); MCV 90.7 fL (80-100); MPV 8.1 fL (7.6-11.3); Monocytes % 14.1 % (3.3-12.3)
[2018-03-14 05:14] LABS: Albumin 3.2 g/dL (3.4-5.0); Bilirubin Direct 0.1 mg/dL (0-0.2); Bilirubin Total 0.5 mg/dL (0.2-1.0); Potassium 3.6 mmol/L (3.5-5.1); Protein, Total 6.6 g/dL (6.4-8.2)
[2018-03-14] MEDS: ENOXAPARIN 80 MG/0.8 ML SQ SCH ×2 (05:23→17:00)
[2018-03-14] MEDS: METRONIDAZOLE 500mg IVPB 500 MG/100 ML BAG IV SCH ×3 (05:26→17:06)
--- NOTE | 2018-03-14 06:55 | EKG ---
Test Date: 2018-03-13 Test Time: 16:22:42 Shoe Puller: MARJAN MEASUREMENT RESULTS: Intervals: Rate: 93 FL: 172 QRSD: 74 QT: 370 QTc: 460 [place]: P: 59 FL: 172 QRS: 18 T: 33 INTERPRETIVE STATEMENTS: Normal sinus rhythm Septal infarct, age undetermined Abnormal ECG Compared to ECG 03/13/2018 01:38:55 Myocardial infarct finding now present T-wave abnormality no longer present Electronically Signed On 03-14-18 06:54:29 CDT by Dilip Westbrook
--- NOTE | 2018-03-14 06:57 | EKG ---
Test Date: 2018-03-13 Test Time: 01:38:55 Inset Cutter: FÁTIMA MEASUREMENT RESULTS: Intervals: Rate: 94 WA: 178 QRSD: 76 QT: 346 QTc: 432 [place]: P: 63 WA: 178 QRS: 35 T: 41 INTERPRETIVE STATEMENTS: Normal sinus rhythm Nonspecific T wave abnormality Abnormal ECG Compared to ECG 12/31/2017 21:40:27 T-wave abnormality now present Electronically Signed On 03-14-18 06:55:05 CDT by Dilip Westbrook
--- NOTE | 2018-03-14 09:03 | RAD REPORT ---
EXAM DESCRIPTION: CT - Chest For Pe Angio - 03/14/2018 8:12 am CLINICAL HISTORY: Chest pain COMPARISON: None. TECHNIQUE: Dynamically enhanced axial 3 mm thick images of the chest were obtained during administra tion of <100> mL Isovue 370 IV contrast. Coronal and oblique reconstruction images were generated and reviewed. Exam utilizes a protocol for optimal evaluation of pulmonary arterial tree. Maximum intensity projections 3D imaging was utilized All CT scans are performed using dose optimization technique as appropriate and may include automated exposure control or mA/KV adjustment according to patient size. FINDINGS: A pulmonary embolus is not seen. A thoracic aortic aneurysm is not noted. A pleural effusion is not seen. A pericardial effusion is not seen. A lung consolidation is not present. A few areas of subsegmental atelectasis are present within the l eric bases IMPRESSION: Negative for a pulmonary embolism.
[2018-03-14] MEDS: LISINOPRIL 20 MG TAB PO SCH (09:27)
[2018-03-14] MEDS: AMLODIPINE 5 MG TAB PO SCH (09:27)
[2018-03-14] MEDS: FAMOTIDINE 20 MG/2 ML VIAL IV SCH (09:27)
[2018-03-14] MEDS: METOPROLOL TAR 50 MG TAB PO SCH (09:27)
[2018-03-14] MEDS: ATORVASTATIN 20 MG TAB PO SCH (09:27)
[2018-03-14] MEDS: MORPHINE 4 MG/ML SYR IV PRN (11:40)
[2018-03-14] MEDS: NA CHLORIDE 0.9% 1,000 ML IV SCH (14:00)
--- NOTE | 2018-03-15 23:27 | DS ---
Date of Discharge: 03/14/2018 Final Diagnoses: Nausea, vomiting, diarrhea from Augmentin. Secondary Diagnoses: Short run of atrial fibrillation, right side paresthesia of the thigh, unclear reasons for sinus tachycardia. Hospital Course: The patient is a 47-year-old lady who received Augmentin by Dr. Henson, but unfor tunately had a reaction with nausea, vomiting, and diarrhea which improved within 2 hours. I was try ing to discharge her yesterday, then she developed tachycardia for no reason which was sinus tachycar jerry or a D-dimer which was high at 800. We ordered a CT angiogram which had to be done next day aida use she already had CT dye over an hour given to her. Her CT angiogram was negative for . She also had a venous Doppler of the legs which was negative. Abdomen CT and sonogram were negative. Patient is discharged home in stable condition with Levaquin once a day. Before going home, she slipped aft er shower and fell in the bathroom, but she said did not fall and has no injuries, able to walk aroun d without any kind of pain. She will follow up with Dr. Henson for further care. She will follow with Dr. Hancock because I think she has sleep apnea and she cannot afford a sleep study. I also as ked her to follow up with Dr. Westbrook for short run of atrial fibrillation she had. She is already o n beta robert, and I do not see any need of adding any further medication and, if she continues to h ave atrial fibrillation off and on, she may need anticoagulation, but again the decision depends on Swapnil Westbrook. VLADIMIR/SOLE Voice ID: [id number] Report ID: [id number]
--- NOTE | 2018-03-17 08:26 | ECHO ---
HEIGHT: 5 ft 4 in WEIGHT: 183 lb 1.6 oz DATE OF STUDY: 03/14/[address]: Shen Ballesteros MD 2-DIMENSIONAL: YES M.MODE: YES DOPPLER: YES COLOR FLOW: YES TDS: NO PORTABLE: NO DEFINITY: NO BUBBLE STUDY: NO DIAGNOSIS: ABNORMAL EKG CARDIAC HISTORY: CATHERIZATION: NO SURGERY: NO PROSTHETIC VALVE: NO PACEMAKER: NO MEASUREMENTS (cm) DIASTOLIC (NORMALS) SYSTOLIC (NORMALS) IVSd 1.2 (0.6-1.2) LA Diam 3.6 (1.9-4.0) LVEF 71% LVIDd 3.9 (3.5-5.7) LVIDs 2.3 (2.0-3.5) %FS 40% LVPWd 1.1 (0.6-1.2) Ao Diam 3.0 (2.0-3.7) 2 DIMENSIONAL ASSESSMENT: RIGHT ATRIUM: NORMAL LEFT ATRIUM: NORMAL RIGHT VENTRICLE: NORMAL LEFT VENTRICLE: NORMAL TRICUSPID VALVE: NORMAL MITRAL VALVE: NORMAL PULMONIC VALVE: NORMAL AORTIC VALVE: NORMAL PERICARDIAL EFFUSION: NONE AORTIC ROOT: NORMAL LEFT VENTRICULAR WALL MOTION: NORMAL. DOPPLER/COLOR FLOW: MILD TRICUSPID REGURGITATION. COMMENTS: NORMAL LEFT VENTRICULAR SIZE AND FUNCTION. MILD TRICUSPID REGURGITATION NORMAL RIGHT VENTRICULAR SYSTOLIC PRESSURE. NO WALL MOTION ABNORMALITY. TECHNOLOGIST: ASTER GUTIÉRREZ
== END 2018-03-14 17:26 | disposition home or self-care (01) ==
LOC: ER 01:17 → 2ND 04:14
PROVIDERS: ADMIT Internal Medicine; ATTEND Internal Medicine
DX: R11.2 Nausea with vomiting, unspecified (principal); R19.7 Diarrhea, unspecified; I10 Essential (primary) hypertension; I48.91 Unspecified atrial fibrillation; R20.2 Paresthesia of skin; T36.0X5A Adverse effect of penicillins, initial encounter; Y92.009 Unspecified place in unspecified non-institutional (private) residence as the place of occurrence of the external cause
CPT/HCPCS: 36415; 71045; 71275; 74177; 76705; 80048; 80076; 81003; 82553; 83690; 83735; 83880; 84439; 84443; 84484; 85025; 85379; 85610; 87086; 87088; 87493; 93005; 93306; 93971; 96361; 96365; 96368; 96375; 99285; G0378; J0744; J1650; J2405; J3010; J7030; Q9967

== ENCOUNTER 2019-06-13 06:33 | Emergency (ER) | payer OTHER ==
--- OUTSIDE RECORDS SUMMARY | 2019-06-13 06:35 | XMS REPORT | Summary of Care ---
:1970 Author Organization [facility] - Health Address [address] [place] [address] Care Team Providers Name Role Phone Yamel Henson Primary Care Provider Encounter Details Date Type Department Care Team Description 02/28/2019 Orders Only [facility] Doctor Unassigned, No [address] [facility] Name [place] [id number] [place] [address] Allergies Active Allergy Reactions Severity Noted Date Comments Ceftriaxone Itching 05/28/2017 Questionable. Pt states "I think it is Rocephin." The medication starts with an R. documented as of this encounter (statuses as of 02/28/2019) Medications Medication Sig Dispensed Refills Start Date End Date Status LORazepam (ATIVAN) 1 mg Take 1 tablet 12 tablet 0 12/02/2016 Active tablet by mouth 3 (three) times daily as needed for Anxiety or Agitation for up to 12 doses. atorvastatin 20 mg tablet Take 20 mg by 0 Active mouth at bedtime. amLODIPine 10 mg tablet Take 10 mg by 0 Active mouth daily. metoprolol succinate XL Take 100 mg by 0 Active 100 mg 24 hr tablet mouth daily. hydroCHLOROthiazide 25 mg Take 25 mg by 0 Active tablet mouth daily. lisinopril 40 mg tablet Take 40 mg by 0 Active mouth daily. aspirin 81 mg EC tablet Take 81 mg by 0 Active mouth daily. ondansetron (ZOFRAN ODT) Take 1 tablet 20 tablet 0 08/03/2018 Active 4 mg disintegrating by mouth every tabletIndications: 8 (eight) hours Epigastric pain, Other as needed for chronic pancreatitis Nausea and Vomiting (N/V). traMADOL (ULTRAM) 50 mg Take 2 tablets 20 tablet 0 08/03/2018 Active tabletIndications: by mouth every Epigastric pain, Other 6 (six) hours chronic pancreatitis as needed for Pain (scale 4-6). documented as of this encounter (statuses as of 02/28/2019) Active Problems Problem Noted Date Failure of outpatient treatment 05/27/2017 Morbid obesity with body mass index of 40.0-49.9 05/27/2017 Epigastric pain 05/27/2017 Muscle weakness (generalized) 01/03/2015 Low back pain, unspecified back pain laterality, with sciatica presence 2014 unspecified Displacement of lumbar intervertebral disc without myelopathy 12/16/2014 documented as of this encounter (statuses as of 02/28/2019) Social History Tobacco Use Types Packs/Day Years Used Date Never Smoker Smokeless Tobacco: Never Used Alcohol Use Drinks/Week oz/Week Comments No Sex Assigned at Date Recorded Not on file Job Start Date Occupation Industry Not on file Not on file Not on file Travel History Travel Start Travel End No recent travel history available. documented as of this encounter Last Filed Vital Signs Not on filedocumented in this encounter Plan of Treatment Health Maintenance Due Date Last Done Comments DTaP,Tdap,and Td Vaccines (1 1989 - Tdap) PAP SMEAR 01/15/2009 01/15/2006, 11/08/2003 MAMMOGRAM 2010 INFLUENZA VACCINE (#1) 2019 PNEUMOCOCCAL 0-64 YEARS Aged Out No longer eligible based COMBINED SERIES on patient's age to complete this topic documented as of this encounter Procedures Procedure Name Priority Date/Time Associated Diagnosis Comments ASSIGNMENT OF BENEFITS Routine 02/28/2019 7:31 PM CDT documented in this encounter Results Not on filedocumented in this encounter Insurance Payer Benefit Plan / Group Subscriber ID Effective Dates Phone Address Type [employer] [id number] 2014-Present PPO documented as of this encounter
--- OUTSIDE RECORDS SUMMARY | 2019-06-13 06:35 | XMS REPORT ---
:1970 [facility] Address [address] [place] [address] Care Team Providers Name Role Phone Unavailable Unavailable Unavailable Problems This patient has no known problems. Allergies, Adverse Reactions, Alerts This patient has no known allergies or adverse reactions. Medications This patient has no known medications. Encounters Start End Encounter Admission Attending Care Care Encounter Date/Time Date/Time Type Type Clinicians Facility Department ID 2019-03-02 2019-03-02 Emergency E [id number] 09:49:00 09:49:00
--- OUTSIDE RECORDS SUMMARY | 2019-06-13 06:35 | XMS REPORT | Summary of Care ---
:1970 Author Organization [facility] Address [address] [place] [id number] Care Team Providers Name Role Phone Yamel Henson Primary Care Provider Reason for Visit Reason Comments Congestion Fever Chills Encounter Details Date Type Department Care Team Description 02/28/2019 Urgent Care [facility] Unknown, Attending Viral illness (Primary Dx); Urgent Care Crystal Reyes MD [address] [address] Sore throat; [address], Headache due to viral infection; [address] Impacted [place] [address] Allergies Active Allergy Reactions Severity Noted Date Comments Amoxicillin-Pot Nausea and/or 02/28/2019 Clavulanate Vomiting Ceftriaxone Itching 05/28/2017 Questionable. Pt states "I [...] pancreatitis as needed for Pain (scale 4-6). SPIRONOLACTONE ORAL Take by mouth. 0 Active acetaminophen-codeine 1/2 - 1 tab 15 tablet 0 02/28/2019 Active 300-30 mg Every 4hrs as tabletIndications: needed for pain Headache due to viral or cough infection requiring narcotic Hospital, Clinic, or Other Ordered Dose Route Frequency Start Date End Date Status Facility Administered Medication ketorolac (TORADOL) 30 mg IM ONCE 02/28/2019 02/28/2019 Ended injection 30 mgIndications: Headache due to viral infection documented as of this encounter (statuses as [...] of this encounter Last Filed Vital Signs Vital Sign Reading Time Taken Comments Blood Pressure 125/87 02/28/2019 7:39 PM CDT Pulse 96 02/28/2019 7:35 PM CDT Temperature 37.2 C (98.9 F) 02/28/2019 7:35 PM CDT Respiratory Rate 17 02/28/2019 7:35 PM CDT Oxygen Saturation 99% 02/28/2019 7:35 PM CDT Inhaled Oxygen Concentration - - Weight 130.2 kg (287 lb) 02/28/2019 7:35 PM CDT Height 162.6 cm (5' 4") 02/28/2019 7:35 PM CDT Body Mass Index 49.26 02/28/2019 7:35 PM CDT documented in this encounter Patient Instructions Patient InstructionsCrystal Reyes MD - 02/28/2019 7:30 PM CDT1. Viral illness Viral Illness -- Consistent with current outbreak. No focus suspicious for a bacterial process. Encourage fluids. Eat as desired. Any meals missed while ill will be made up when well again. 2. Sore throat - POCT RAPID STREP SCREEN FOR GROUP A Negative Treat pain as below. 3. Headache due to viral infection - POCT RAPID FLU A AND B TEST Negative - acetaminophen-codeine 300-30 mg tablet; 1/2 - 1 tab Every 4hrs as needed for pain or cough requiring narcotic Dispense: 15 tablet; Refill: 0 - ketorolac (TORADOL) injection 30 mg Pain Acetaminophen (Tylenol) 500mg take 2 tablets twice a day baseline and up to 4 times a day for pain. May add Ibuprofen 200mg take 2 tablets every 4 hours if greater relief needed. In blinded studies, greater than 400mg does not relieve pain better than 400mg. If any risk of heart problem, limit to 1200mg a day. Tylenol and ibuprofen may be taken at the same time and give greater relief than expected if add thetwo effects together, called "1+1=3" Codeine if narcotic necessary, Has a tylenol in it, to be counted in daily total. Do not drive or engage in hazardous activities for 4 hours after taking codeine. Dizziness: be safe with change of positions and rapid movements, as turning. Do not drive if any hint of being dizzy. 4. Impacted cerumen of right ear Irrigated clear. See Dr. Henson if follow up needed or return here as needed. documented in this encounter Progress Notes Shirley Nair MA - 02/28/2019 7:30 PM CDTPatient is a 48 year old female here today to have and ear irrigation procedure to remove ear wax inthe right ear(s). The patient has been identified by and name The patient has signed the informed consent. Previous/Current Encounter Diagnosis: Cerumen impaction Ear wax was removed with water irrigation. Patient tolerated the procedure well. Crystal Gilbert MD - 02/28/2019 7:30 PM CDT Cc: Chief Complaint Patient presents with Congestion Fever Chills Marika Boyd is a 48 year old female. HPI Wed frontal headache Last night sore throat, dizzy even with lying down Sl runny nose and sl cough Awake chills sore throat Tx: APAP Medications Outpatient Medications Prior to Visit Medication Sig Dispense Refill SPIRONOLACTONE ORAL Take by mouth. amLODIPine 10 mg tablet Take 10 mg by mouth daily. aspirin 81 mg EC tablet Take 81 mg by mouth daily. atorvastatin 20 mg tablet Take 20 mg by mouth at bedtime. hydroCHLOROthiazide 25 mg tablet Take 25 mg by mouth daily. lisinopril 40 mg tablet Take 40 mg by mouth daily. metoprolol succinate XL 100 mg 24 hr tablet Take 100 mg by mouth daily. ondansetron (ZOFRAN ODT) 4 mg disintegrating tablet Take 1 tablet by mouth every 8 (eight) hoursas needed for Nausea and Vomiting (N/V). 20 tablet 0 traMADOL (ULTRAM) 50 mg tablet Take 2 tablets by mouth every 6 (six) hours as needed for Pain (scale 4-6). 20 tablet 0 LORazepam (ATIVAN) 1 mg tablet Take 1 tablet by mouth 3 (three) times daily as needed for Anxiety or Agitation for up to 12 doses. 12 tablet 0 No facility-administered medications prior to visit. Review of Systems Constitutional: fever, chills, sweats Skin: Denies: Rash Allergy/Immunology: rhinorrhea Eyes: Denies: visual loss or blurred vision ENT: sore throat Denies: Earache, nasal congestion, Respiratory: sl cough Denies: dyspnea, Gastrointestinal: sl diarrhea x2 Denies: abdominal pain, nausea, vomiting, Genitourinary: Denies: dysuria, urgency, frequency Musculoskeletal: achy Neuro: frontal headache, dizziness, Denies: vision change, lightheaded Past Medical History: No date: High cholesterol No date: HTN (hypertension) No date: Morbid obesity Past Surgical History: 03/20/2017: COLONOSCOPY; N/A Comment: Surgeon: Moreno Wilburn MD; Location: [facility] [place] 05/28/2017: ESOPHAGOGASTRODUODENOSCOPY; N/A Comment: Surgeon: Moreno Wilburn MD; Location: [facility] [place] No date: HYSTERECTOMY No date: TUBAL LIGATION Review of patient's family history indicates: Problem: Coronary Heart Disease Relation: Mother Age of Onset: (Not Specified) Social History Socioeconomic History Marital status: Single Spouse name: Not on file Number of children: Not on file Years of education: Not on file Highest education level: Not on file Occupational History Not on file Social Needs Financial resource strain: Not on file Food insecurity: Worry: Not on file Inability: Not on file Transportation needs: Medical: Not on file Non-medical: Not on file Tobacco Use Smoking status: Never Smoker Smokeless tobacco: Never Used Substance and Sexual Activity Alcohol use: No Drug use: No Sexual activity: Not on file Lifestyle Physical activity: Days per week: Not on file Minutes per session: Not on file Stress: Not on file Relationships Social connections: Talks on phone: Not on file Gets together: Not on file Attends sabianist service: Not on file Active member of club or organization: Not on file Attends meetings of clubs or organizations: Not on file Relationship status: Not on file Intimate partner violence: Fear of current or ex partner: Not on file Emotionally abused: Not on file Physically abused: Not on file Forced sexual activity: Not on file Other Topics Concerns: Not on file Social History Narrative 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 Eyes: PERRL, conjunctiva/sclera normal ENT: moist mucous membranes, palate normal pink, pharynx normal, nose normal, Ears Rt TM cerumen impaction, after irrigation TM clear Lf clear Neck: non-tender, no masses or swelling Respiratory/Chest: breath sounds normal, no wheezing Cardiovascular: regular rate and rhythm, heart sounds normal GI: abdomen soft, non-tender, bowel sounds normal to diminished MS: Legs: non-tender Back: non-tender, no CVA tenderness Skin: no rash. Normal color and turgor. Neurologic: alert, speech normal, gait normal Psychiatric: Interactive, Mood normal Assessment/Plan 1. Viral illness Viral Illness -- Consistent with current outbreak. No focus suspicious for a bacterial process. Encourage fluids. Eat as desired. Any meals missed while ill will be made up when well again. 2. Sore throat - POCT RAPID STREP SCREEN FOR GROUP A Negative Treat pain as below. 3. Headache due to viral infection - POCT RAPID FLU A AND B TEST Negative - acetaminophen-codeine 300-30 mg tablet; 1/2 - 1 tab Every 4hrs as needed for pain or cough requiring narcotic Dispense: 15 tablet; Refill: 0 - ketorolac (TORADOL) injection 30 mg Pain Acetaminophen (Tylenol) 500mg take 2 tablets twice a day baseline and up to 4 times a day for pain. May add Ibuprofen 200mg take 2 tablets every 4 hours if greater relief needed. In blinded studies, greater than 400mg does not relieve pain better than 400mg. If any risk of heart problem, limit to 1200mg a day. Tylenol and ibuprofen may be taken at the same time and give greater relief than expected if add thetwo effects together, called "1+1=3" Codeine if narcotic necessary, Has a tylenol in it, to be counted in daily total. Do not drive or engage in hazardous activities for 4 hours after taking codeine. Dizziness: be safe with change of positions and rapid movements, as turning. Do not drive if any hint of being dizzy. 4. Impacted cerumen of right ear Irrigated clear. See Dr. Henson if follow up needed or return here as needed. documented in this encounter Plan of Treatment Health Maintenance Due Date Last Done Comments DTaP,Tdap,and Td Vaccines (1 1989 - Tdap) PAP SMEAR 01/15/2009 01/15/2006, 11/08/2003 MAMMOGRAM 2010 INFLUENZA VACCINE (#1) 2019 PNEUMOCOCCAL 0-64 YEARS Aged Out No longer eligible based COMBINED SERIES on patient's age to complete this topic documented as of this encounter Procedures Procedure Name Priority Date/Time Associated Diagnosis Comments POCT RAPID FLU A Routine 02/28/2019 7:46 PM Headache due to Results for this AND B TEST CDT viral infection procedure are in the results section. POCT RAPID STREP Routine 02/28/2019 7:40 PM Sore throat Results for this SCREEN FOR GROUP A CDT procedure are in the results section. documented in this encounter Results POCT RAPID FLU A AND B TEST (02/28/2019 7:46 PM CDT) POCT INFLUENZA A neg Negative - Negative POCT INFLUENZA B neg Negative - Negative Specimen Swab Narrative Performed At accurate development and interpretation of all internal controls POCT RAPID STREP SCREEN FOR GROUP A (02/28/2019 7:40 PM CDT) POCT GP A STREP neg Negative - Negative Specimen Swab - THROAT Narrative Performed At accurate development and interpretation of all internal controls documented in this encounter Visit Diagnoses Diagnosis Viral illness - Primary Unspecified viral infection, in conditions classified elsewhere and of unspecified site Sore throat Acute pharyngitis Headache due to viral infection Impacted cerumen of right ear Impacted cerumen documented in this encounter Administered Medications Medication Order MAR Action Action Date Dose Rate Site ketorolac (TORADOL) injection Given 02/28/2019 8:15 PM CDT 30 mg Left Hip 30 mg 30 mg, Intramuscular, ONCE, 1 dose, 02/28/19 at 2115, Routine, tribal council member approving Restricted medication: CRYSTAL REYES documented in this encounter documented as of this encounter
--- OUTSIDE RECORDS SUMMARY | 2019-06-13 06:36 | XMS REPORT | Summary of Care ---
:1970 Author Organization [facility] Address [address] [place] [address] Care Team Providers Name Role Phone Yamel Henson Primary Care Provider Reason for Referral Radiology Services (STAT) Status Reason Specialty Diagnoses / Referred By Referred To Procedures Contact Contact New Request Diagnostic Diagnoses Viral syndrome Billy Tamayo, Radiology Procedures XR CHEST 1 VW DO [address] [facility]. [address] [place] [address] Radiology Services (STAT) Status Reason Specialty Diagnoses / Referred By Referred To Procedures Contact Contact New Request Diagnostic Diagnoses Viral syndrome Billy Tamayo, Radiology Procedures XR CHEST 1 VW DO [address] [facility]. [address] [place] [address] Reason for Visit Reason Comments MALAISE Auth/Cert Status Reason Specialty Diagnoses / Referred By Referred To Procedures Contact Contact [facility] [address] [place] [address] [place] [address] Encounter Details Date Type Department Care Team Description 03/08/2019 Emergency [facility] Billy Tamayo DO Bilateral pulmonary infiltrates on CXR (Primary Dx); Department [address] [place] [address]. Runny nose; [address] [place] [address] [address] Viral syndrome; [place] [address] [place] [address] Pneumonia of both lungs due to infectious organism, unspecified part of lung [phone] Allergies Active Allergy Reactions Severity Noted Date Comments Amoxicillin-Pot Nausea and/or 02/28/2019 Clavulanate Vomiting Ceftriaxone Itching 05/28/2017 Questionable. Pt states "I think it is Rocephin." The medication starts with an R. documented as of this encounter (statuses as of 03/08/2019) Medications Medication Sig Dispensed Refills Start Date [...] to viral or cough infection requiring narcotic azithromycin (ZITHROMAX Take 1 tablet 1 Package 0 03/08/2019 Active Z-ISAURA) 250 mg by mouth tabletIndications: SEE-INSTRUCTION Bilateral pulmonary S. Take 500 mg infiltrates on CXR day 1, then 250 mg days 2 to 5. benzonatate 100 mg Take 1 capsule 14 capsule 0 03/08/2019 Active capsuleIndications: by mouth 3 Bilateral pulmonary (three) times infiltrates on CXR daily as needed for Cough. methylPREDNISolone Take by mouth 21 Each 0 03/08/2019 Active (MEDROL, ISAURA,) 4 mg SEE-INSTRUCTION tabletsIndications: S. follow Bilateral pulmonary package infiltrates on CXR directions codeine-guaifenesin Take 5 mL by 120 mL 0 03/08/2019 Active (CHERATUSSIN AC) 10-100 mouth every 6 mg/5 mL (six) hours as solutionIndications: needed for Bilateral pulmonary Cough. infiltrates on CXR documented as of this encounter (statuses as of 03/08/2019) Active Problems Problem Noted Date Failure of outpatient treatment 05/27/2017 Morbid obesity with body mass index of 40.0-49.9 05/27/2017 Epigastric pain 05/27/2017 Muscle weakness (generalized) 01/03/2015 Low back pain, unspecified back pain laterality, with sciatica presence 2014 unspecified Displacement of lumbar intervertebral disc without myelopathy 12/16/2014 documented as of this encounter (statuses as of 03/08/2019) Social History Tobacco Use Types Packs/Day Years [...] Sign Reading Time Taken Comments Blood Pressure 154/89 03/08/2019 11:00 AM CDT Pulse 100 03/08/2019 11:00 AM CDT Temperature 37.1 C (98.7 F) 03/08/2019 11:00 AM CDT Respiratory Rate 20 03/08/2019 11:00 AM CDT Oxygen Saturation 99% 03/08/2019 11:00 AM CDT Inhaled Oxygen - - Concentration Weight 130.2 kg (287 lb) 03/08/2019 11:00 Simultaneous filing. AM CDT User may not have seen previous data. Height - - Body Mass Index 49.26 02/28/2019 7:35 PM CDT documented in this encounter Discharge Instructions Billy De La Garza DO - 03/08/2019 DIAGNOSIS Diagnoses that have been ruled out: None Diagnoses that are still under consideration: None Final diagnoses: Runny nose Viral syndrome Bilateral pulmonary infiltrates on CXR NO LIFE-THREATENING FINDINGS ON TODAY'S EXAM. PROCEDURES IN THE ER TODAY: Orders Placed This Encounter Procedures XR CHEST 1 VW ADC,CLC OR LCC ONLY - INFLUENZA A & B DIRECT ANTIGEN COMP. METABOLIC PANEL (97605) CBC WITH DIFF TROPONIN I N-TERMINAL PRO-BNP MAGNESIUM D-DIMER URINALYSIS CBC WITH DIFFERENTIAL MEDICATIONS ADMINISTERED IN THE ER TODAY AND DISCHARGE MEDICATIONS: Orders Placed This Encounter Medications ketorolac (TORADOL) injection 30 mg NaCl 0.9% (NS) bolus infusion 1,000 mL benzonatate (TESSALON PERLES) capsule 100 mg FOLLOW-UP RECOMMENDATIONS: RECOMMEND FOLLOW-UP WITH A PRIMARY CARE PROVIDER OR SPECIALIST IN 2-5 DAYS, ESPECIALLY IF NO IMPROVEMENT IN SYMPTOMS. MAY FOLLOW-UP WITH A PROVIDER OF YOUR CHOICE, SUCH : 1. A PHYSICIAN OF YOUR CHOICE 2. [facility], . LOCATIONS IN [facility] 3. [facility], [address] [place] [address]; OR, IF YOU WISH TO FOLLOW-UP WITHIN THE [facility], MAY TRY THESE OPTIONS (CLINIC APPOINTMENTS AVAILABLE ON [id number] BASIS): 1. SCHEDULE AN APPOINTMENT ONLINE AT [email or web address] 2. OR CALL THE [facility] AT OR 3. OR CALL YOUR [facility] PHYSICIAN'S OFFICE DIRECTLY IF YOU ARE ALREADY AN ESTABLISHED [facility] PATIENT. RETURN TO ER FOR WORSENING OF SYMPTOMS. AttachmentsThe following attachments cannot be sent through Care Everywhere.Pneumonia, Treating (Slovak)documented in this encounter Plan of Treatment Health Maintenance Due Date Last Done Comments DTaP,Tdap,and Td Vaccines (1 1989 - Tdap) PAP SMEAR 01/15/2009 01/15/2006, 11/08/2003 MAMMOGRAM 2010 INFLUENZA VACCINE (#1) 2019 PNEUMOCOCCAL 0-64 YEARS Aged Out No longer eligible based COMBINED SERIES on patient's age to complete this topic documented as of this encounter Procedures Procedure Name Priority Date/Time Associated Comments Diagnosis XR CHEST 1 VW STAT 03/08/2019 12:11 Viral syndrome Results for this PM CDT procedure are in the results section. URINALYSIS STAT 03/08/2019 11:28 Viral syndrome Results for this AM CDT procedure are in the results section. CBC WITH DIFFERENTIAL STAT 03/08/2019 11:13 Viral syndrome Results for this AM CDT procedure are in the results section. N-TERMINAL PRO-BNP STAT 03/08/2019 11:13 Viral syndrome Results for this AM CDT procedure are in the results section. D-DIMER STAT 03/08/2019 11:13 Viral syndrome Results for this AM CDT procedure are in the results section. CBC WITH DIFF Routine 03/08/2019 11:13 Viral syndrome Results for this AM CDT procedure are in the results section. COMP. METABOLIC PANEL STAT 03/08/2019 11:13 Viral syndrome Results for this (45638) AM CDT procedure are in the results section. TROPONIN I STAT 03/08/2019 11:13 Viral syndrome Results for this AM CDT procedure are in the results section. MAGNESIUM STAT 03/08/2019 11:13 Viral syndrome Results for this AM CDT procedure are in the results section. ADC,CLC OR LCC ONLY - STAT 03/08/2019 11:02 Runny nose Results for this INFLUENZA A & B AM CDT procedure are in DIRECT ANTIGEN the results section. documented in this encounter Results XR CHEST 1 VW (03/08/2019 12:11 PM CDT) Specimen Impressions Performed At No acute cardiopulmonary abnormality. PACS/VR/DOSE I, MD. Wai, have reviewed this study and agree with the above report. Narrative Performed At EXAM: XR CHEST 1 VW PACS/VR/DOSE HISTORY: 48 years-old Female presenting with cough COMPARISON: CT abdomen pelvis 08/03/2018 TECHNIQUE: Single AP view of the chest. FINDINGS: Streaky right mid to lower lobe opacities probably represent atelectasis. Similar appearing left retrocardiac opacities are noted. The lungs are well-expanded and otherwise clear without focal consolidation. The opacity projecting over the right chest wall and right cardiophrenic angle is likely related to imaging artifact. No pleural effusion or pneumothorax. The cardiomediastinal silhouette is normal. No acute bony abnormality. Procedure Note [facility], Radiant Results Inft User - 03/08/2019 12:35 PM CDT EXAM: XR CHEST 1 VW HISTORY: 48 years-old Female presenting with cough COMPARISON: CT abdomen pelvis 08/03/2018 TECHNIQUE: Single AP view of the chest. FINDINGS: Streaky right mid to lower lobe opacities probably represent atelectasis. Similar appearing left retrocardiac opacities are noted. The lungs are well-expanded and otherwise clear without focal consolidation. The opacity projecting over the right chest wall and right cardiophrenic angle is likely related to imaging artifact. No pleural effusion or pneumothorax. The cardiomediastinal silhouette is normal. No acute bony abnormality. IMPRESSION No acute cardiopulmonary abnormality. I, Jameel Novoa MD., have reviewed this study and agree with the above report. Performing Organization Address [facility] Phone Number PACS/VR/DOSE URINALYSIS (03/08/2019 11:28 AM CDT) APPEARANCE Hazy (A) Clear [facility] COLOR Yellow Yellow [facility] PH 5.0 4.8 - 8.0 [facility] SP GRAVITY 1.027 1.003 - 1.030 [facility] GLU U QUAL Normal Normal [facility] BLOOD NegativeComment: Negative [facility] INTERFERENCE FROM HOSPITAL LABORATORY ASCORBIC ACID MAY CAUSE FALSE NEGATIVE RESULT KETONES Negative Negative [facility] PROTEIN Negative Negative [facility] UROBILIN Normal Normal [facility] BILIRUBIN Negative Negative [facility] NITRITE Negative Negative [facility] [place] Negative Negative [facility] RBC/HPF 9 (H) 0 - 3 HPF [facility] WBC/HPF 2 0 - 5 HPF [facility] BACTERIA Few (A) Negative [facility] MUCOUS Slight (A) Negative LPF [facility] SQ EPITH 3 HPF [facility] Specimen Urine - URINE, CLEAN CATCH Performing Organization Address [facility] Phone Number [facility] CLIA: [id number], [address] [place] [address] CBC WITH DIFFERENTIAL (03/08/2019 11:13 AM CDT) WBC 7.43 4.30 - 11.10 [facility] 10*3/L [facility] RBC 3.86 (L) 3.93 - 5.25 [facility] 10*6/L [facility] HGB 11.4 (L) 11.6 - 15.0 [facility] g/dL [facility] HCT 34.9 (L) 35.7 - 45.2 % [facility] MCV 90.4 80.6 - 95.5 fL [facility] MCH 29.5 25.9 - 32.8 pg [facility] MCHC 32.7 31.6 - 35.1 [facility] g/dL [facility] RDW-SD 42.2 39.0 - 49.9 fL [facility] RDW-CV 12.8 12.0 - 15.5 % [facility] PLT 223 166 - 358 [facility] 10*3/L [facility] MPV 9.7 9.5 - 12.9 fL [facility] NRBC/100 WBC 0.0 0.0 - 10.0 /100 [facility] WBCs [facility] NRBC x10^3 <0.01 10*3/L [facility] GRAN MAT (NEUT) % 65.6 % [facility] IMM GRAN % 0.50 % [facility] LYMPH % 21.1 % [facility] MONO % 10.1 % [facility] EOS % 2.7 % [facility] BASO % 0.0 % [facility] GRAN MAT x10^3(ANC) 4.87 1.88 - 7.09 [facility] 10*3/uL [facility] IMM GRAN x10^3 0.04 0.00 - 0.06 [facility] 10*3/uL [facility] LYMPH x10^3 1.57 1.32 - 3.29 [facility] 10*3/uL [facility] MONO x10^3 0.75 0.33 - 0.92 [facility] 10*3/uL [facility] EOS x10^3 0.20 0.03 - 0.39 [facility] 10*3/uL [facility] BASO x10^3 <0.03 0.01 - 0.07 [facility] 10*3/uL [facility] Specimen Blood - VENOUS Performing Organization Address City/State/Zipcode Phone Number [facility] CLIA: [id number], [address] [place] [address] D-DIMER (03/08/2019 11:13 AM CDT) D-DIMER 0.28 <0.41 g/mL (FEU) [facility] Specimen Blood - VENOUS Narrative Performed At This test may be used in conjunction with a [facility] clinical pretest probability (PTP) assessment model to exclude venous thromboembolism (VTE) in patients suspected of deep venous thrombosis (DVT) and pulmonary embolism (PE) A D-Dimer value less than 0.50 g/ml (FEU) has a negative predicative value of 96 to 100% (95% CI)and 97 to 100% (95% CI) as an aid in the diagnosis of deep vein thrombosis (DVT) and pulmonary embolism when there is low or moderate pretest probability of PE or DVT. D-Dimer values are expressed in initial fibrinogen equivalent units (FEU)" The assay results should be used with other information, including the clinical context, in forming a diagnosis. Performing Organization Address City/[facility] Phone Number [facility] CLIA: [id number], [address] [place] [id number] [address] MAGNESIUM (03/08/2019 11:13 AM CDT) MAGNESIUM 1.7 1.7 - 2.4 mg/dL [facility] Specimen Blood - VENOUS Performing Organization Address [facility] Phone Number [facility] CLIA: [id number], [address] [place], [place] [address] [address] N-TERMINAL PRO-BNP (03/08/2019 11:13 AM CDT) NT-proBNP 27 <=125 pg/mL [facility] Specimen Blood - VENOUS Narrative Performed At Biotin has been reported to cause a negative [facility] bias, interpret results relative to patient's use of biotin. Performing Organization Address [facility] Phone Number [facility] CLIA: [id number], [address] [place] [address] [address] TROPONIN I (03/08/2019 11:13 AM CDT) TROPONIN I 0.000 <=0.034 ng/mL [facility] Specimen Blood - VENOUS Narrative Performed At Equal or Less than 0.034 ng/ml---Normal [facility] Note: Cardiac troponin begins to rise 3-4 hours after the onset of ischemia. Repeat in 4-6 hours if the sample was drawn within 3-4 hours of the onset of the symptom and found normal. Between 0.035 and 0.120 ng/mL--- Borderline. Questionable myocardial injury or necrosis Note: Serial measurement may be necessary to confirm or exclude the diagnosis of myocardial injury or necrosis; Clinical correlation (symptoms, EKGs, imaging studies, and others) required; Repeat in 4-6 hours if clinically indicated. Equal or Higher than 0.121 ng/mL---Abnormal. Myocardial Injury or Necrosis Likely Biotin has been reported to cause a negative bias, interpret results relative to patient's use of biotin. Performing Organization Address City/State/Zipcode Phone Number [facility] CLIA: [id number], [address] [place] [address] COMP. METABOLIC PANEL ([id number]) (03/08/2019 11:13 AM CDT) NA 142 135 - 145 mmol/L [facility] K 3.8 3.5 - 5.0 mmol/L [facility] CL 105 98 - 108 mmol/L [facility] CO2 TOTAL 29 23 - 31 mmol/L [facility] AGAP 8 2 - 16 [facility] BUN 12 7 - 23 mg/dL [facility] GLUCOSE 101 70 - 110 mg/dL [facility] CREATININE 0.85 0.50 - 1.04 [facility] mg/dL HOSPITAL [facility] TOTAL BILI 0.3 0.1 - 1.1 mg/dL [facility] CALCIUM 9.3 8.6 - 10.6 mg/dL [facility] T PROTEIN 7.1 6.3 - 8.2 g/dL [facility] ALBUMIN 4.1 3.5 - 5.0 g/dL [facility] ALK PHOS 89 34 - 122 U/L [facility] ALT(SGPT) 19 9 - 51 U/L [facility] AST(SGOT) 20 13 - 40 U/L [facility] eGFR Calculation 71.4 mL/min/1.73m2 [facility] (Non-) [facility] eGFR Calculation 86.5 mL/min/1.73m2 [facility] Specimen Blood - VENOUS Narrative Performed At Association of Glomerular Filtration Rate (GFR) [facility] and Staging of Kidney Disease* + + +- + | GFR (mL/min/1.73 m2)| With Kidney Damage|Without Kidney Damage + + +- + |>90| Stage one| Normal + + +- + |60-89|S tage two| Decreased GFR + + +- + |30-59|S tage three| Stage three + + +- + |15-29|S tage four | Stage four + + +- + |<15 (or dialysis)|Stage five | Stage five + + +- + *Each stage assumes the associated GFR level has been in effect for at least three months.Stages 1 to 5, with or without kidney disease, indicate chronic kidney disease. Notes: Determination of stages one and two (with eGFR >59mL/min/1.73 m2) requires estimation of kidney damage for at least three months as defined by structural or functional abnormalities of the kidney, manifested by either: Pathological abnormalities or Markers of kidney damage (including abnormalities in the composition of the blood or urine or abnormalities in imaging tests). Performing Organization Address City/State/Zipcode Phone Number [facility] CLIA: [id number], [address] [place] [address] ADC,CLC OR LCC ONLY - INFLUENZA A & B DIRECT ANTIGEN (03/08/2019 11:02 AM CDT) Influenza A NEGATIVE Negative [facility] Influenza B NEGATIVE Negative [facility] Specimen Swab - NARE, LEFT SIDE Performing Organization Address City/State/[facility] Phone Number [facility] CLIA: [id number], [address] [place] [address] documented in this encounter Visit Diagnoses Diagnosis Bilateral pulmonary infiltrates on CXR - Primary Other nonspecific abnormal finding of lung field Runny nose Other diseases of nasal cavity and sinuses Viral syndrome Unspecified viral infection, in conditions classified elsewhere and of unspecified site Pneumonia of both lungs due to infectious organism, unspecified part of lung documented in this encounter Administered Medications Medication Order MAR Action Action Date Dose Rate Site ketorolac (TORADOL) injection 30 Given 03/08/2019 11:31 AM CDT 30 mg mg 30 mg, Slow IV Push, Q6H, 4 doses, First dose on 03/08/19 at 1200, Last dose on 03/09/19 at 0600, Routine, bioinformatics team member approving Restricted medication: BILLY TAMAYO Medication Order MAR Action Action Date Dose Rate Site benzonatate (TESSALON PERLUSMAN) Given 03/08/2019 11:46 AM CDT 100 mg capsule 100 mg 100 mg, Oral, ONCE, 1 dose, 03/08/19 at 1245, Routine documented in this encounter documented as of this encounter
[2019-06-13] MEDS ORDERED: NA CHLORIDE 0.9% 2,000 ML ONE (06:49)
[2019-06-13] MEDS ORDERED: MEPERIDINE HCL 50 MG/ML ONE (06:49)
[2019-06-13] MEDS ORDERED: ONDANSETRON 4 MG/2 ML VIAL ONE (06:52)
[2019-06-13 07:05] LABS: Basophils % 0.1 % (0-1.3); Hematocrit 40.6 % (36.0-45.0); Lymphocytes % 14.4 % (15.3-44.8); MPV 7.9 fL (7.6-11.3); RBC Red Blood Cell Count 4.54 M/uL (3.86-4.86)
[2019-06-13 07:06] LABS: Protime INR 1.05
[2019-06-13 07:37] LABS: ALT/SGPT 24 U/L (12-78); AST/SGOT 12 U/L (15-37); Albumin 3.9 g/dL (3.4-5.0); Alkaline Phosphatase 104 U/L (45-117); BUN Blood Urea Nitrogen 16 mg/dL (7-18); Bicarbonate 28 mmol/L (21-32); Bilirubin Direct 0.2 mg/dL (0-0.2); Bilirubin Total 0.8 mg/dL (0.2-1.0); Glucose Level 125 mg/dL (74-106); HDL Cholesterol 48 mg/dL (40-60); LDL Cholesterol, Calculated 75 (<130); Lipase 61 U/L (73-393); Potassium 3.8 mmol/L (3.5-5.1); Sodium Level 136 mmol/L (136-145); Troponin (Emerg Dept Use Only) < 0.02 ng/mL (0.0-0.045)
--- NOTE | 2019-06-13 08:07 | RAD REPORT ---
EXAM DESCRIPTION: [place] Single View06/13/2019 7:52 am CLINICAL HISTORY: Chest pain COMPARISON: 2018 FINDINGS: The lungs appear clear of acute infiltrate. The heart is mildly enlarged IMPRESSION: No acute abnormalities displayed
--- NOTE | 2019-06-13 08:15 | RAD REPORT ---
EXAM DESCRIPTION: US - Abdomen Exam Limited - 06/13/2019 8:07 am CLINICAL HISTORY: Abdominal pain. COMPARISON: 2018 FINDINGS: The gallbladder wall is not thickened. A gallstone is not seen. The biliary tree is normal caliber. IMPRESSION: Unremarkable gallbladder ultrasound.
[2019-06-13] MEDS ORDERED: DICYCLOMINE HCL 10 MG CAP ONE (08:44)
[2019-06-13] MEDS ORDERED: MEPERIDINE HCL 25 MG/0.5 ML ONE (09:33)
--- NOTE | 2019-06-13 09:33 | RAD REPORT ---
EXAM DESCRIPTION: CT - Stone Protocol - 06/13/2019 9:08 am CLINICAL HISTORY: Abdominal pain. COMPARISON: 2018 TECHNIQUE: Computed axial tomography of the abdomen pelvis was obtained without oral or IV contrast. Lack of IV and oral contrast limits evaluation of solid organs, bowel, and vessels. Coronal reformat deniz images were obtained and reviewed. All CT scans are performed using dose optimization technique as appropriate and may include automated exposure control or mA/KV adjustment according to patient size. FINDINGS: A renal calculus is not seen. An ureteral calculus is not noted. A bladder calculus is not present. The liver, spleen, pancreas and adrenals appear grossly normal There is no evidence of diverticulitis. The appendix appears normal Small umbilical hernia. Hysterectomy Mild stranding within the central mesentery of the abdomen IMPRESSION: Negative for a genitourinary calculus Mild stranding within the central mesenteric abdomen probably a mild mesenteritis
--- NOTE | 2019-06-13 09:41 | ER ---
Nurse's Notes [facility] Name: Etta Boyd Age: 49 yrs Sex: Female : 1970 Arrival Date: 06/13/2019 Time: 06:36 Bed 8 Private MD: Diagnosis: Nonspecific mesenteric lymphadenitis Presentation: 06/13 06:45 Presenting complaint: Patient states: she woke up from sleep about 2200 with upper abd aa1 pain 10/10 and vomiting. Reports hx of pancreatitis with same symptoms. Transition of care: patient was not received from another setting of care. Onset of symptoms was June 12, 2019 at 22:00. Risk Assessment: Do you want to hurt yourself or someone else? Patient reports no desire to harm self or others. Initial Sepsis Screen: Does the patient meet any 2 criteria? HR > 90 bpm. Does the patient have a suspected source of infection? Yes: Acute abdominal pain. Care prior to arrival: None. 06:45 Method Of Arrival: Wheelchair aa1 06:45 Acuity: FALGUNI 3 aa1 Triage Assessment: 06:52 General: Appears in no apparent distress. uncomfortable, Behavior is cooperative, aa1 appropriate for age, crying. 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 - Social history:: Smoking status: Patient/guardian denies using tobacco. - Ebola Screening: : Patient denies exposure to infectious person Patient denies travel to an Ebola-affected area in the 21 days before illness onset. Screenin:01 Abuse screen: Denies threats or abuse. Nutritional screening: No deficits noted. jd3 Tuberculosis screening: No symptoms or risk factors identified. Fall Risk IV access (20 points). Ambulatory Aid- None/Bed Rest/Nurse Assist (0 pts). Gait- Normal/Bed Rest/Wheelchair (0 pts) Mental Status- Oriented to own ability (0 pts). Total Buitrago Fall Scale indicates No Risk (0-24 pts). Assessment: 06:59 General: Appears uncomfortable, Behavior is calm, cooperative, appropriate for age. jd3 Pain: Complains of pain in epigastric area, right upper quadrant and left upper quadrant Quality of pain is described as sharp, tender. Neuro: Level of Consciousness is awake, alert, obeys commands, Oriented to person, place, time, situation. Cardiovascular: Capillary refill < 3 seconds Patient's skin is warm and dry. Respiratory: Airway is patent Respiratory effort is even, unlabored, Respiratory pattern is regular, symmetrical, Denies cough, shortness of breath. GI: Abdomen is round non-distended, Abd is soft X 4 quads Abdomen is tender to palpation in epigastric area, right upper quadrant and left upper quadrant Reports nausea, vomiting, similar pain to previous pancreatitis episode. : No signs and/or symptoms were reported regarding the genitourinary system. EENT: No signs and/or symptoms were reported regarding the EENT system. Derm: Skin is intact, Skin is dry, Skin is normal, Skin temperature is warm. Musculoskeletal: Circulation, motion, and sensation intact. Range of motion: intact in all extremities. 07:32 Reassessment: Patient appears in no apparent distress at this time. Patient and/or tw2 family updated on plan of care and expected duration. Pain level reassessed. Patient is alert, oriented x 3, equal unlabored respirations, skin warm/dry/pink. 08:45 Reassessment: Pt c/o increased pain, rated 8/10, moaning and asking for pain jl7 medications. ERP notified, see MAR for orders. 09:09 Reassessment: Patient appears in no apparent distress at this time. Patient and/or tw2 family updated on plan of care and expected duration. Pain level reassessed. Patient is alert, oriented x 3, equal unlabored respirations, skin warm/dry/pink. Vital Signs: 06:52 BP 145 / 93; Pulse 114; Resp 20; Temp 98.4; Pulse Ox 100% on R/A; Weight 134.26 kg (R); aa1 Height 5 ft. 4 in. (162.56 cm); Pain 10/10; 07:30 BP 134 / 89; Pulse 84; Resp 17; Pulse Ox 97% on R/A; tw2 09:09 BP 136 / 102; Pulse 93; Resp 17; Pulse Ox 100% on R/A; tw2 06:52 Body Mass Index 50.81 (134.26 kg, 162.56 cm) aa1 ED Course: 06:36 Patient arrived in ED. cl3 06:43 [facility]C [facility] snw 06:43 Ayden Lange MD is Attending Physician. snw 06:47 Triage completed. aa1 06:52 Arm band placed on right wrist. aa1 06:55 Inserted saline lock: 20 gauge in right antecubital area, using aseptic technique. oe Blood collected. 06:57 Julito Guzman RN is Primary Nurse. jd3 07:02 Patient has correct armband on for positive identification. Bed in low position. Call jd3 light in reach. Side rails up X 1. Adult w/ patient. 07:49 XRAY Chest (1 view) In Process Unspecified. EDMS 08:06 Ultrasound completed. Patient tolerated well. sg3 08:07 US Abdomen Limited In Process Unspecified. EDMS 09:10 CT Stone Protocol In Process Unspecified. EDMS 09:59 No provider procedures requiring assistance completed. IV discontinued, intact, jl7 bleeding controlled, No redness/swelling at site. Pressure dressing applied. Administered Medications: 06:57 Drug: NS 0.9% 1000 ml Route: IV; Rate: 1 bolus; Site: right antecubital; jd3 08:00 Follow up: Response: No adverse reaction; IV Status: Completed infusion; IV Intake: jl7 1000ml 06:58 Drug: NS 0.9% 1000 ml Route: IV; Rate: 125 ml/hr; Site: right antecubital; jd3 10:00 Follow up: Response: No adverse reaction; IV Status: Completed infusion; IV Intake: jl7 375ml 06:58 Drug: Demerol 50 mg Route: IVP; Site: right antecubital; jd3 07:30 Follow up: Response: No adverse reaction; Pain is decreased; RASS: Alert and Calm (0) tw2 06:58 Drug: Zofran 4 mg Route: IVP; Site: right antecubital; jd3 09:37 Follow up: Response: No adverse reaction; Nausea is decreased tw2 08:49 Drug: Bentyl 20 mg Route: PO; jl7 09:30 Follow up: Response: No adverse reaction; Pain is unchanged, physician notified tw2 09:36 Drug: Demerol 25 mg {Note: rass 0.} Route: IVP; Site: right antecubital; tw2 10:00 Follow up: Response: No adverse reaction; Pain is decreased :59 Drug: TORadol - Ketorolac 15 mg Route: IVP; Site: right antecubital; jl7 10:00 Follow up: Response: No adverse reaction jl7 Intake: 08:00 IV: 1000ml; Total: 1000ml. 7 10:00 IV: 375ml; Total: 1375ml. 7 Outcome: 09:40 Discharge ordered by . juju :59 Discharged to home via wheelchair, with family. :59 Condition: stable :59 Discharge instructions given to patient, Instructed on discharge instructions, follow up and referral plans. medication usage, Demonstrated understanding of instructions, follow-up care, medications, Prescriptions given X 2. 10:00 Patient left the ED. Signatures: Dispatcher [employer] EDMS Rachel Garsia RN RN aa1 Reina Tobin, SENIOR VICE PRESIDENT & GENERAL COUNSEL-C SENIOR VICE PRESIDENT & GENERAL COUNSEL-Csnw Meli Marcum RN RN tw2 [employer] Pichardo Jahala, RN RN jl7 Julito Guzman RN RN jd3 Liz Ellington 3 Dang Bain 3
--- NOTE | 2019-06-13 09:42 | EDPHYS ---
Physician Documentation [facility] Name: Etta Boyd Age: 49 yrs Sex: Female : 1970 Arrival Date: 06/13/2019 Time: 06:36 Bed 8 Private MD: MENG Physician Ayden Lange HPI: 06/13 06:47 This 49 yrs old Black Female presents to ER via Wheelchair with complaints of Abdominal snw Pain, Vomiting. 06:47 The patient presents with abdominal pain in the epigastric area, in the upper abdomen. snw Onset: The symptoms/episode began/occurred suddenly, last night. The symptoms do not radiate. Associated signs and symptoms: Pertinent positives: nausea and vomiting. The symptoms are described as stabbing, steady. Severity of pain: At its worst the pain was incapacitating in the emergency department the pain is unchanged. The patient has experienced a previous episode, dx with pancreatitis. The patient has not recently seen a physician, sees Dr. Henson. 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 - Social history:: Smoking status: Patient/guardian denies using tobacco. - Ebola Screening: : Patient denies exposure to infectious person Patient denies travel to an Ebola-affected area in the 21 days before illness onset. ROS: 06:46 Constitutional: Negative for fever, chills, and weight loss, Eyes: Negative for injury, snw pain, redness, and discharge, ENT: Negative for injury, pain, and discharge, Neck: Negative for injury, pain, and swelling, Cardiovascular: Negative for chest pain, palpitations, and edema, Respiratory: Negative for shortness of breath, cough, wheezing, and pleuritic chest pain, Back: Negative for injury and pain, : Negative for injury, bleeding, discharge, and swelling, MS/Extremity: Negative for injury and deformity, Skin: Negative for injury, rash, and discoloration, Neuro: Negative for headache, weakness, numbness, tingling, and seizure. 06:46 Abdomen/GI: Positive for abdominal pain, nausea and vomiting, of the epigastric area and left upper quadrant. Exam: 06:46 Head/Face: Normocephalic, atraumatic. Eyes: Pupils equal round and reactive to light, snw extra-ocular motions intact. Lids and lashes normal. Conjunctiva and sclera are non-icteric and not injected. Cornea within normal limits. Periorbital areas with no swelling, redness, or edema. ENT: Nares patent. No nasal discharge, no septal abnormalities noted. Tympanic membranes are normal and external auditory canals are clear. Oropharynx with no redness, swelling, or masses, exudates, or evidence of obstruction, uvula midline. Mucous membranes moist. Neck: Trachea midline, no thyromegaly or masses palpated, and no cervical lymphadenopathy. Supple, full range of motion without nuchal rigidity, or vertebral point tenderness. No Meningismus. Chest/axilla: Normal chest wall appearance and motion. Nontender with no deformity. No lesions are appreciated. Cardiovascular: Regular rate and rhythm with a normal S1 and S2. No gallops, murmurs, or rubs. Normal PMI, no JVD. No pulse deficits. Respiratory: Lungs have equal breath sounds bilaterally, clear to auscultation and percussion. No rales, rhonchi or wheezes noted. No increased work of breathing, no retractions or nasal flaring. 06:46 Back: No spinal tenderness. No costovertebral tenderness. Full range of motion. Skin: Warm, dry with normal turgor. Normal color with no rashes, no lesions, and no evidence of cellulitis. MS/ Extremity: Pulses equal, no cyanosis. Neurovascular intact. Full, normal range of motion. Neuro: Awake and alert, GCS 15, oriented to person, place, time, and situation. Cranial nerves II-XII grossly intact. Motor strength 5/5 in all extremities. Sensory grossly intact. Cerebellar exam normal. Normal gait. 06:46 Constitutional: The patient appears alert, anxious, obese, in obvious pain, restless, uncomfortable. 06:46 Abdomen/GI: Inspection: abdomen appears normal, Bowel sounds: diminished, in all quadrants, Palpation: moderate abdominal tenderness, in the epigastric area and left upper quadrant. 06:46 Psych: Behavior/mood is cooperative, anxious. Vital Signs: 06:52 BP 145 / 93; Pulse 114; Resp 20; Temp 98.4; Pulse Ox 100% on R/A; Weight 134.26 kg (R); aa1 Height 5 ft. 4 in. (162.56 cm); Pain 10/10; 07:30 BP 134 / 89; Pulse 84; Resp 17; Pulse Ox 97% on R/A; tw2 09:09 BP 136 / 102; Pulse 93; Resp 17; Pulse Ox 100% on R/A; tw2 06:52 Body Mass Index 50.81 (134.26 kg, 162.56 cm) aa1 MDM: 06:43 Patient medically screened. snw 09:41 Data reviewed: vital signs, nurses notes. Data interpreted: Pulse oximetry: on room air snw is 100 %. Interpretation: normal. Counseling: I had a detailed discussion with the patient and/or guardian regarding: the historical points, exam findings, and any diagnostic results supporting the discharge/admit diagnosis, the presence of at least one elevated blood pressure reading (>120/80) during this emergency department visit, lab results, radiology results, the need for outpatient follow up, to return to the emergency department if symptoms worsen or persist or if there are any questions or concerns that arise at home. Special discussion: Based on the patient's Hx, exam, and Dx evaluation, there is no indication for emergent surgery or inpatient Tx. It is understood by the patient/guardian that if the Sx's persist or worsen they need to return immediately for re-evaluation. I have referred the patient to see his PCP for further evaluation of high blood pressure. Based on the history and exam findings, there is no indication for further emergent testing or inpatient evaluation. I discussed with the patient/guardian the need to see the mechanical apprentice for further evaluation of the symptoms. I discussed with the patient/guardian the need to see the primary care provider for further evaluation of the symptoms. 06/13 06:46 Order name: Basic Metabolic Panel; Complete Time: 07:39 snw 06/13 06:46 Order name: CBC with Diff; Complete Time: 07:17 snw 06/13 06:46 Order name: LFT's; Complete Time: 07:41 snw 06/13 06:46 Order name: Magnesium; Complete Time: 07:41 snw 06/13 06:46 Order name: PT-INR; Complete Time: 07:17 snw 06/13 06:46 Order name: Troponin (emerg Dept Use Only); Complete Time: 07:41 snw 06/13 06:46 Order name: XRAY Chest (1 view); Complete Time: 08:09 snw 06/13 06:46 Order name: Lipase; Complete Time: 07:41 snw 06/13 06:46 Order name: Lipid Profile; Complete Time: 07:41 snw 06/13 06:46 Order name: US Abdomen Limited; Complete Time: 08:13 snw 06/13 08:42 Order name: CT Stone Protocol; Complete Time: 09:37 snw 06/13 06:46 Order name: EKG; Complete Time: 06:47 snw 06/13 06:46 Order name: Cardiac monitoring; Complete Time: 06:58 snw 06/13 06:46 Order name: EKG - Nurse/Tech; Complete Time: 06:59 snw 06/13 06:46 Order name: IV Saline Lock; Complete Time: 06:58 snw 06/13 06:46 Order name: Labs collected and sent; Complete Time: 06:58 snw 06/13 06:46 Order name: O2 Per Protocol; Complete Time: 06:58 snw 06/13 06:46 Order name: O2 Sat Monitoring; Complete Time: 06:58 snw Administered Medications: 06:57 Drug: NS 0.9% 1000 ml Route: IV; Rate: 1 bolus; Site: right antecubital; jd3 08:00 Follow up: Response: No adverse reaction; IV Status: Completed infusion; IV Intake: jl7 1000ml 06:58 Drug: NS 0.9% 1000 ml Route: IV; Rate: 125 ml/hr; Site: right antecubital; jd3 10:00 Follow up: Response: No adverse reaction; IV Status: Completed infusion; IV Intake: jl7 375ml 06:58 Drug: Demerol 50 mg Route: IVP; Site: right antecubital; jd3 07:30 Follow up: Response: No adverse reaction; Pain is decreased; RASS: Alert and Calm (0) tw2 06:58 Drug: Zofran 4 mg Route: IVP; Site: right antecubital; jd3 09:37 Follow up: Response: No adverse reaction; Nausea is decreased tw2 08:49 Drug: Bentyl 20 mg Route: PO; jl7 09:30 Follow up: Response: No adverse reaction; Pain is unchanged, physician notified tw2 09:36 Drug: Demerol 25 mg {Note: rass 0.} Route: IVP; Site: right antecubital; tw2 10:00 Follow up: Response: No adverse reaction; Pain is decreased jl7 09:59 Drug: TORadol - Ketorolac 15 mg Route: IVP; Site: right antecubital; jl7 10:00 Follow up: Response: No adverse reaction jl7 Disposition: 15:14 Co-signature as Attending Physician, Ayden Lange MD I agree with the assessment and lito plan of care. Disposition: 06/13/19 09:40 Discharged to Home. Impression: Nonspecific mesenteric lymphadenitis. - Condition is Stable. - Discharge Instructions: Mesenteric Adenitis, Pediatric. - Prescriptions for Bentyl 10 mg Oral Capsule - take 1 capsule by ORAL route every 6 hours As needed; 40 capsule. Diclofenac Sodium 75 mg Oral Tablet Sustained Release - take 1 tablet by ORAL route 2 times per day; 30 tablet. - Medication Reconciliation Form, Thank You Letter, Antibiotic Education, Prescription Opioid Use form. - Follow up: Emergency Department; When: As needed; Reason: Worsening of condition. Follow up: Private Physician; When: 2 - 3 days; Reason: Recheck today's complaints, Continuance of care, Re-evaluation by your physician. Signatures: Dispatcher [employer] Rachel Ludwig RN RN aa1 Ayden Lange MD MD cha Therrien, Shelly, INSTRUCTIONAL MANAGER-C INSTRUCTIONAL MANAGER-Csnw Meli Marcum RN RN tw2 Susan Dunn RN RN jl7 Julito Guzman RN RN jd3 Corrections: (The following items were deleted from the chart) 10:00 09:40 06/13/2019 09:40 Discharged to Home. Impression: Nonspecific mesenteric jl7 lymphadenitis. Condition is Stable. Forms are Medication Reconciliation Form, Thank You Letter, Antibiotic Education, Prescription Opioid Use. Follow up: Emergency Department; When: As needed; Reason: Worsening of condition. Follow up: Private Physician; When: 2 - 3 days; Reason: Recheck today's complaints, Continuance of care, Re-evaluation by your physician. snw
[2019-06-13] MEDS ORDERED: KETOROLAC 30 MG/ML INJ ONE (09:56)
[2019-06-13 16:34] VITALS: TEMP 98.4
[2019-06-13 16:36] VITALS: BP 136/102; O2SAT 100
--- NOTE | 2019-06-15 20:52 | EKG ---
Test Date: 2019-06-13 Test Time: 07:02:39 Osteologist: ERIK MEASUREMENT RESULTS: Intervals: Rate: 98 [place]: 160 QRSD: 76 QT: 370 QTc: 472 [place]: P: 63 [place]: 160 QRS: 35 T: 40 INTERPRETIVE STATEMENTS: Normal sinus rhythm Normal ECG Compared to ECG 03/13/2018 16:22:42 Myocardial infarct finding no longer present Electronically Signed On 06-15-19 20:47:14 V[address] R[address] DRIVER by Dilip Westbrook
== END 2019-06-13 10:00 | disposition home or self-care (01) ==
LOC: ER 06:33
DX: I88.0 Nonspecific mesenteric lymphadenitis (principal); Z88.0 Allergy status to penicillin
CPT/HCPCS: 96361; 93005; 85025; 80048; 36415; 83735; 85610; 80061; 80076; 84484; 83690; 76377; 74176; 71045; 76705; 96375; 96374; 99284; J2175 ×2; J7030; J2405